=== PATIENT | male | born 1975 | race Caucasian/White ===

== ENCOUNTER → 2020-03-25 08:35 | Outpatient (BNVA) | payer OTHER, SELFPAY | PROVIDERS: Visit Provider Physician Assistant | DX: S39.012A Strain of muscle, fascia and tendon of lower back, initial encounter (principal); X50.0XXA Overexertion from strenuous movement or load, initial encounter; X50.3XXA Overexertion from repetitive movements, initial encounter | CPT/HCPCS: 99202 ==

== ENCOUNTER → 2020-03-29 10:09 | Outpatient (BNVA) | payer OTHER, SELFPAY | PROVIDERS: Visit Provider Physician Assistant Medical | DX: S33.9XXA Sprain of unspecified parts of lumbar spine and pelvis, initial encounter (principal); X58.XXXA Exposure to other specified factors, initial encounter | CPT/HCPCS: 72110; 99214 ==

== ENCOUNTER → 2020-04-05 09:50 | Outpatient (BNVA) | payer OTHER, SELFPAY | PROVIDERS: PCP Internal Medicine; Visit Provider Physician Assistant Medical | DX: M51.16 Intervertebral disc disorders with radiculopathy, lumbar region (principal) | CPT/HCPCS: 99213 ==

== ENCOUNTER 2020-04-11 10:38 | Outpatient (REF) | payer OTHER, SELFPAY ==
--- NOTE | ~2020-04-11 | MR_ITS ---
EXAMINATION: MR LUMBAR SPINE WITHOUT CONTRAST CLINICAL INFORMATION: Lifting/twisting post injury. Radiating down left leg with leg weakness. COMPARISON: Plain films of the lumbar spine 03/29/2020. TECHNIQUE: MRI of the lumbar spine was obtained using routine sequences without contrast. FINDINGS: VERTEBRAL BODIES AND PARASPINAL STRUCTURES: There is anatomic alignment of the vertebral bodies. There is narrowing of and loss of signal from the intervertebral discs at L1-L2 and L5-S1. There is mild loss of signal from the intervertebral disc at L4-L5. There are degenerative endplate contour changes at L1-L2. There is mixed edematous and fatty endplate signal change along the inferior endplate of L1 anteriorly. Vertebral body heights are maintained. No fractures are demonstrated. Overall, marrow signal is homogenous. There is mild fullness of the left adrenal gland, without focal nodule. The visualized pelvic structures are unremarkable. CONUS MEDULLARIS AND CAUDA EQUINA: Normal, terminating at the level of L1. The lower thoracic spinal cord appears normal. The cauda equina nerve roots and filum terminale appear normal. SPINAL LEVELS: L1-L2: There is mild bilateral facet arthropathy. There is a small posterior disc protrusion to the right of midline with an annular fissure without significant mass effect on the thecal sac. The neural foramina are patent bilaterally. There is no central stenosis. L2-L3: There is mild to moderate bilateral facet arthropathy with ligamenta flava hypertrophy and a small right-sided facet joint effusion. Disc contour is normal. There is no central stenosis or foraminal narrowing. L3-L4: There is mild to moderate bilateral facet arthropathy with ligamenta flava hypertrophy and a right facet joint effusion. There is a mild diffuse disc bulge, without foraminal nerve root impingement. There is no central stenosis. L4-L5: There is mild to moderate bilateral facet arthropathy with ligamenta flava hypertrophy and facet joint effusions. There is a diffuse disc bulge with minimal distortion of the ventral thecal sac. There is no central stenosis, and the neural foramina are patent bilaterally. L5-S1: There is mild bilateral facet arthropathy. There is a right paracentral disc protrusion with an annular fissure which mildly distorts the ventral thecal sac. The neural foramina are patent bilaterally. There is no impingement on the traversing S1 nerve roots. There is no central stenosis. MR/MR lumbar spine wo con IMPRESSION: 1. There is a right paracentral disc protrusion at L5-S1 with minimal distortion of the ventral thecal sac. There is no central stenosis or nerve root impingement. 2. Milder spondylitic and facet arthropathic changes are demonstrated at other levels as described above. There is no central stenosis or neural foraminal narrowing.
== END 2020-04-11 10:39 | disposition home or self-care (01) ==
LOC: HO.MRI 10:38
PROVIDERS: Visit Provider Internal Medicine
DX: M79.662 Pain in left lower leg (principal); R53.1 Weakness
CPT/HCPCS: 72148

== ENCOUNTER → 2020-04-16 09:24 | Outpatient (BNVA) | payer OTHER, SELFPAY | PROVIDERS: PCP Internal Medicine; Visit Provider Physician Assistant | DX: M54.17 Radiculopathy, lumbosacral region (principal) | CPT/HCPCS: 99214 ==

== ENCOUNTER → 2020-05-02 09:49 | Outpatient (BNVA) | payer OTHER, SELFPAY | PROVIDERS: PCP Internal Medicine; Visit Provider Physician Assistant Medical | DX: M25.48 Effusion, other site (principal); M50.80 Other cervical disc disorders, unspecified cervical region; M46.1 Sacroiliitis, not elsewhere classified | CPT/HCPCS: 99213 ==

== ENCOUNTER 2020-05-30 11:00 | Outpatient (RCR) | payer OTHER, SELFPAY ==
--- NOTE | 2020-04-04 11:49 | MHC.PT.EP ---
[facility] [place] Office [place] Office [place] Office [address] [phone] F: [phone] F: [phone] F: [phone] F: [phone] Physical Therapy Plan of Care Date of Evaluation: 04/04/20 Date of Surgery: Diagnosis: Lumbar Strain with radiculopathy Assessment: Pt is a 44 y.o.m. 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 Currently he is OOW. PMH is significant for ACL reconstruction 2019. Pt presents to PT today with postural abnormalities, significantly decreased lumbar ROM, strength deficits, and tenderness along (B) lumbar paraspinals, SIJ, and gluteal. Throughout session pt required positional changes for pain relief with standing most comfortable for pt. Pt strength deficits are secondary to pain with likely underlying strength deficits presents. Pt sxs are consistent with acute lumbar strain following workplace incident with possible lumbar derangement. He has a lumbar MRI scheduled 04/11/2020. Pt will benefit from skilled PT 2x/week for 4 weeks to improve hip/lumbar strength, lumbar ROM, pain, and functional mobility to aid in ambulation, ADLs, and return to work. Frequency and Duration: The patient will be seen 2x/week for 4 weeks Short Term Goals: 2 Weeks: 1)Pt will be independent in HEP to maintain gains between sessions 2)Pt pain will decrease 50% to aid in prolonged sitting and sleeping 3)Pt will self identify and correct posture to reduce pain and centralize pain Obstetrician/Gynecologist Goals: 4 Weeks: 1) Pt lumbar ROM will be WFL to aid in bending motions 2) Pt will demonstrate proper lifting mechanics to aid in return to work 3) Pt will tolerate standing activties >1 hour without increase in pain to aid in return to work. Treatment Plan: Modalities to reduce pain, spasms and effusion. Manual therapy to restore motion and function. Therapeutic exercise to improve strength and flexibility. Neuromuscular re-education for posture and balance. Therapeutic activities to return to functional activities of daily living. Electronically signed by: Leona Leong PT Please sign and return to therapist. Thank you for your referral.
--- NOTE | 2020-06-13 12:21 | MHC.PT.DC ---
[facility] [place] Office [place] Office [place] Office [address] [phone] F: [phone] F: [phone] F: [phone] F: [phone] Physical Therapy Discharge Report Diagnosis: Lumbar Strain with radiculopathy Date of Surgery: Date of Evaluation: 04/04/20 Date of Discharge: 06/13/20 Treatments to Date: 13 Cancellations to Date: 8 No Shows to Date: 1 Discharge Status: Improved Function Independent with HEP Visit Non-compliance Discharge Summary: Pt was making good progress in regards to pain and function at time of last visit and demonstrating appropriate lifting 25# box. He did not f/u with final visits and is d/c from PT at this time. Electronically signed by: Leona Leong PT Please sign and return to therapist. Thank you for your referral.
== END 2020-06-13 12:22 | disposition home or self-care (01) ==
LOC: HO.PT 11:00
PROVIDERS: PCP Internal Medicine; Visit Provider Physician Assistant Medical
DX: S39.012A Strain of muscle, fascia and tendon of lower back, initial encounter (principal); M54.16 Radiculopathy, lumbar region
CPT/HCPCS: 97110; 97112; 97140; 97161; 97530

== ENCOUNTER 2021-04-25 07:49 | Outpatient (REF) | payer OTHER, SELFPAY ==
[2021-04-25 08:40] LABS: COVID-19 Test Positive (Negative)
== END 2021-04-25 07:50 | disposition home or self-care (01) ==
LOC: HO.LAB 07:49
PROVIDERS: Visit Provider Internal Medicine
DX: Z20.822 Contact with and (suspected) exposure to COVID-19 (principal)
CPT/HCPCS: 87635; C9803

== ENCOUNTER 2021-05-12 06:43 | Emergency (ER) | payer OTHER, SELFPAY ==
--- NOTE | ~2021-05-12 | US_ITS ---
EXAMINATION: US ABDOMEN LIMITED CLINICAL INFORMATION: Upper abdominal pain. COMPARISON: CT from earlier the same day TECHNIQUE: Real-time imaging of the gallbladder FINDINGS: GALLBLADDER: The gallbladder is normal in size. There is question of mild focal gallbladder wall thickening of the fundus of the gallbladder measuring up to 5 mm. No stone or mass is seen. Gallbladder wall is otherwise normal. There is no pericholecystic fluid. The generation engineering technologist does not report that the patient is tender over the gallbladder. COMMON BILE DUCT: Normal in caliber measuring 0.4 cm in diameter. US/US abdomen limited IMPRESSION: Mild focal gallbladder wall thickening over the fundus of the gallbladder measuring up to 0.5 cm.
--- NOTE | ~2021-05-12 | CT_ITS ---
EXAMINATION: CT ABDOMEN AND PELVIS WITH CONTRAST CLINICAL INFORMATION: Upper abdominal pain COMPARISON: Previous abdominal ultrasound and CT of the abdomen and pelvis March 2014 TECHNIQUE: Multidetector volumetric images were obtained from the superior aspect of the liver through the pubic symphysis following administration 85 mL of Omnipaque 350 intravenous contrast. Sagittal and coronal reformatted images were obtained on the technologist's workstation. Oral contrast: Yes This CT examination was performed using dose optimization techniques as appropriate, variously including the following: *Automated exposure control *Adjustment of mA and/or kV according to patient size (this includes techniques or standardized protocols for targeted exams where dose is matched to indication/reason for exam; i.e. extremities or head) *Use of iterative reconstruction technique DLP: 626 mGy-cm FINDINGS: LUNG BASES: The visualized lung bases are unremarkable. LIVER, GALLBLADDER, AND BILIARY TREE: The liver is normal in size, shape, and attenuation. No focal hepatic lesion or biliary ductal dilatation is present. The gallbladder appears contracted. There is question of mild wall thickening along the gallbladder fundus and tiny amount of adjacent pericholecystic fluid. PANCREAS: Unremarkable. SPLEEN: Unremarkable. ADRENAL GLANDS: Unremarkable. KIDNEYS AND URETERS: The kidneys are normal in size, shape, and attenuation. No hydronephrosis, hydroureter, or calculi seen. No perinephric stranding. BLADDER: Unremarkable. GASTROINTESTINAL TRACT: The small and large bowel are unremarkable. The appendix is unremarkable. Stomach is not optimally distended. ABDOMINAL WALL: Small umbilical hernia containing fat. LYMPH NODES: Normal. VASCULAR: Unremarkable. PELVIC VISCERA: Unremarkable. OSSEOUS STRUCTURES: Unremarkable. CT/CT abdomen pelvis w con IMPRESSION: Contracted gallbladder. Question mild fundal gallbladder wall thickening. This could be better evaluated with ultrasound if clinically indicated. Small umbilical hernia containing fat. Fleischner guidelines were followed.
[2021-05-12 06:50] VITALS: BP 121/86; PULSE 86; RESP 18; TEMP 36.7; O2SAT 100; BMI 29.0
--- NOTE | 2021-05-12 06:53 | ECG_ITS ---
Test Reason : SUB STERNAL PAIN Blood Pressure : / mmHG Vent. Rate : 084 BPM Atrial Rate : 084 BPM P-R Int : 150 ms QRS Dur : 078 ms QT Int : 350 ms P-R-T Axes : 066 036 048 degrees QTc Int : 413 ms Artifact in tracing Normal sinus rhythm Normal ECG When compared with ECG of 02-APR-2018 21:52, No significant change was found Referred By: Generic ED Physician Electronically Signed By:AISSATOU FLORES
[2021-05-12 07:53] LABS: Hematocrit 46.7 % (42.0-52.0); Hemoglobin 15.3 g/dl (14.0-18.0); Mean Corpuscular HGB Conc 32.8 g/dl (31.0-36.0); Mean Corpuscular Hemoglobin 29.9 pg (27.0-33.0); Mean Corpuscular Volume 91.4 fL (80.0-98.0); Mean Platelet Volume 10.2 fL (9.4-12.4); Platelet Count 246 X10*3/uL (160-400); Red Blood Count 5.11 X10*6/uL (4.60-5.80); Red Cell Distribution Width 14.6 % (11.0-16.0)
--- NOTE | 2021-05-12 07:55 | ED_ITS ---
HPI - General Adult General Chief complaint: Abdominal Pain Stated complaint: abd pain, back pain Time Seen by Provider: 05/12/21 07:45 Source: patient Limitations: no limitations History of Present Illness HPI narrative: this is a 46-year-old male who complains of upper abdominal pain that began and has worsened overnight. The patient had noted a few days ago that he had bright red blood in his stool. Yesterday he noted upper abdominal pain, also noted that he seemed to have a knot in his upper abdomen and points to just below his xiphoid process. He has noted continuation of the mid abdominal pain as well as the pain is back on both sides when he takes a deep breath. He denies the pain is worse on 1 side. Denies any fever. Denies any nausea vomiting. Denies any constipation or diarrhea, has not had can not teen you had blood in his stool. He denies any urinary symptoms. He denies fever. Related Data Allergies Allergy/AdvReac Type Severity Reaction Status Date / Time hydrocodone [From VICODIN] Allergy Intermediate HIVES Unverified 11/16/19 17:17 SEASONAL ALLERGIES Allergy Unknown NASAL Uncoded 11/16/19 17:17 STUFFINESS vicodin Allergy Unknown Uncoded 04/12/19 00:00 Review of Systems Review of Systems: Yes all other systems are reviewed and are negative Constitutional: Constitutional: Reports as per HPI and Denies fever(s) Eyes: Eyes: Reports as per HPI and Reports no additional eye complaints ENT: Reports system reviewed and no additional complaints, except as documented, Reports as per HPI, Denies nasal congestion, Denies nasal discharge and Denies sore throat Cardiovascular: Cardiovascular: Reports as per HPI, Denies chest pain and Denies dyspnea Respiratory: Respiratory: Reports as per HPI, Denies cough and Denies dyspnea Gastrointestinal: Gastrointestinal: Reports as per HPI, Reports abdominal pain, Reports hematochezia, Denies diarrhea and Denies vomiting Genitourinary: Genitourinary: Reports as per HPI, Denies hematuria, Denies dysuria and Denies urinary frequency Musculoskeletal: Musculoskeletal: Reports no additional musculoskeletal complaints Integumentary/Breasts: Skin/Breast: Reports as per HPI and Denies rash Neurologic: Reports as per HPI Psychiatric: Psychiatric: Reports no additional psychiatric complaints and Reports as per HPI Endocrine: Endocrine: Reports no additional endocrine complaints and Reports as per HPI Hematologic/Lymphatic: Hematologic/Lymphatic: Reports no additional hematologic/lymphatic complaints, Reports as per HPI and Reports other (No peripheral edema) [facility] Past Medical History Medical History (Updated 05/12/21 @ 14:09 by Andrei Valdivia MD) GERD (gastroesophageal reflux disease) Stomach ulcer Physical Exam ED Vital Signs: Vital Signs - 24 hr 05/12/21 06:50 05/12/21 12:28 Temperature 98.1 F 97.8 F Pulse Rate 86 68 Respiratory Rate 18 18 Blood Pressure 121/86 116/84 Pulse Oximetry 100 97 BMI result Body Mass Index 29.0 Const General: no acute distress Orientation/consciousness: patient oriented x3 HENMT Head: Yes normal to inspection General nose exam: Normal external nose present Mouth: moist mucous membranes Throat: Yes posterior oropharynx normal, Yes tonsils normal and Yes uvula midline Eyes Eyelids: Yes eyelids normal Conjunctivae: conjunctivae normal Pupils: Equal, round and reactive pupils present Neck Neck: Yes supple Resp Effort & Inspection: normal respiratory effort Auscultation: clear to auscultation bilaterally Cardio Rate: regular rate Rhythm: regular rhythm Heart sounds: S1 normal heart sound present, S2 normal heart sound present, no gallops, no murmurs and no rubs GI Inspection: No distended Palpation (GI): Soft to palpation and Tenderness to palpation present (GI) ( Mild epigastric tenderness, slight focal fullness over the xiphoid proces) Auscultation: normal bowel sounds Skin General skin exam: other (Warm and dry) Neuro General: patient oriented x3 and CN's II-XI intact bilaterally Cranial nerves: Yes Equal, round and reactive pupils present Extrem General: Yes no pedal edema Psych Affect: normal affect Attitude: cooperative Medical Decision Making [facility] Narrative Medical decision making narrative: patient later related that he has been having this similar pain about once a month but more recently it has been twice a month and tends to come on after eating. He did have child he has food last night. He is on omeprazole. He has never had his gallbladder evaluated as far as he knows. Patient's CBC chemistry, lipase unremarkable. Liver transaminases borderline elevated but bilirubin and alk-phos normal. CT scan showed question of gallbladder wall thickening in the setting of a contracted gallbladder. Patient feels better after 2 doses of Dilaudid as well as Zofran and Maalox, however given upset and nature of his pain and the fact that comes on after eating, will obtain ultrasound to evaluate the gallbladder better. Ultrasound showed no concerning findings. Patient needs GI follow-up for possible EGD, possible HIDA scan. Patient is on pantoprazole, recommend continuing this Lab Data Lab results reviewed: Yes I reviewed the patient's lab results. Result diagrams: 05/12/21 07:48 05/12/21 07:48 Labs: Lab Results 05/12/21 05/12/21 05/12/21 Range/Units 07:48 07:48 08:03 WBC 8.0 (4.8-10.8) X10*3/uL RBC 5.11 (4.60-5.80) X10*6/uL Hgb 15.3 (14.0-18.0) g/dl Hct 46.7 (42.0-52.0) % MCV 91.4 (80.0-98.0) fL MCH 29.9 (27.0-33.0) pg MCHC 32.8 (31.0-36.0) g/dl RDW 14.6 (11.0-16.0) % Plt Count 246 (160-400) X10*3/uL MPV 10.2 (9.4-12.4) fL Absolute Nucleated RBC 0.000 (0.0-0.012) X10*3/uL Nucleated RBC % (auto) 0.0 (0.0-0.2) /100WBC Sodium 139 (135-145) mmol/L Potassium 5.0 (3.3-5.1) mmol/L Chloride 106 (96-108) mmol/L Carbon Dioxide 24 (22-29) mmol/L Anion Gap 14 (12-20) BUN 15 (9-16) mg/dL Creatinine 0.93 (0.5-1.4) mg/dL Estim Creat Clear Calc 99.5 Estimated GFR > 60 Random Glucose 99 (60-115) mg/dL Calcium 9.8 (8.4-10.2) mg/dL Total Bilirubin 0.2 (0.0-1.0) mg/dL Direct Bilirubin < 0.2 (0.0-0.5) mg/dL AST 62 H (5-37) U/L ALT 44 H (0-40) U/L Alkaline Phosphatase 91 (39-117) U/L Troponin I High Sens < 3.5 (<3.5-35.0) ng/L Total Protein 7.6 (6.5-8.0) g/dL Albumin 4.2 (3.5-5.0) g/dL Lipase 39 (8-78) U/L Urine Color Urine Appearance Urine pH (5.0-8.0) Ur Specific Capulin (1.005-1.025) Urine Protein (NEG-TRACE) MG/DL Urine Glucose (UA) (NEG) MG/DL Urine Ketones (NEG) MG/DL Urine Blood (NEG) Urine Nitrite (NEG) Ur Leukocyte Esterase (NEG) 05/12/21 Range/Units 11:14 WBC (4.8-10.8) X10*3/uL RBC (4.60-5.80) X10*6/uL Hgb (14.0-18.0) g/dl Hct (42.0-52.0) % MCV (80.0-98.0) fL MCH (27.0-33.0) pg MCHC (31.0-36.0) g/dl RDW (11.0-16.0) % Plt Count (160-400) X10*3/uL MPV (9.4-12.4) fL Absolute Nucleated RBC (0.0-0.012) X10*3/uL Nucleated RBC % (auto) (0.0-0.2) /100WBC Sodium (135-145) mmol/L Potassium (3.3-5.1) mmol/L Chloride (96-108) mmol/L Carbon Dioxide (22-29) mmol/L Anion Gap (12-20) BUN (9-16) mg/dL Creatinine (0.5-1.4) mg/dL Estim Creat Clear Calc Estimated GFR Random Glucose (60-115) mg/dL Calcium (8.4-10.2) mg/dL Total Bilirubin (0.0-1.0) mg/dL Direct Bilirubin (0.0-0.5) mg/dL AST (5-37) U/L ALT (0-40) U/L Alkaline Phosphatase (39-117) U/L Troponin I High Sens (<3.5-35.0) ng/L Total Protein (6.5-8.0) g/dL Albumin (3.5-5.0) g/dL Lipase (8-78) U/L Urine Color STRAW Urine Appearance CLEAR Urine pH 6.0 (5.0-8.0) Ur Specific Capulin 1.010 (1.005-1.025) Urine Protein NEG (NEG-TRACE) MG/DL Urine Glucose (UA) NEG (NEG) MG/DL Urine Ketones NEG (NEG) MG/DL Urine Blood NEG (NEG) Urine Nitrite NEG (NEG) Ur Leukocyte Esterase NEG (NEG) Imaging Data CT scan - abdomen: Radiologist's impression: Contracted gallbladder. Question mild fundal gallbladder wall thickening. This could be better evaluated with ultrasound if clinically indicated. Small umbilical hernia containing fat. ultra sound right upper quadrant: Radiologist's impression: IMPRESSION: Mild focal gallbladder wall thickening over the fundus of the gallbladder measuring up to 0.5 cm. ECG Data Attestation: I personally reviewed and interpreted this ECG as follows: Interpretation: sinus rhythm with a rate of 84. Prominent T-wave in lead V3. Slight ST elevation in lead V3 through V6. Artifact versus prominent P waves in leads to 3 in AVF, however not seen in lead 1 or in limb leads Discharge Plan Discharge Clinical Impression: Gastritis Patient Disposition: Home, Self-Care Instructions: Gastritis (ED) Additional Instructions: Continue your omeprazole. Follow-up with Gastroenterology. Return for any new or worsened symptoms. Referrals: Alfonzo Robin [Physician] - 2 days Stand Alone Forms: Work/School Release Interventions: ED Discharge Assessment Last Done: 05/12/21 14:15 Discharge Date/Time: 05/12/21 14:16
[2021-05-12 08:10] LABS: Anion Gap 14 (12-20); Blood Urea Nitrogen 15 mg/dL (9-16); Calcium 9.8 mg/dL (8.4-10.2); Carbon Dioxide 24 mmol/L (22-29); Chloride 106 mmol/L (96-108); Creatinine Clr Calc Pharmacy 99.5; Estimated Glomerular Filt Rate > 60; Glucose Random 99 mg/dL (60-115); Lipase 39 U/L (8-78); Sodium 139 mmol/L (135-145)
[2021-05-12] MEDS: ondansetron HCL 4 MG/2 ML VIAL IVPUSH (08:10)
[2021-05-12] MEDS: Pantoprazole Sodium 40 MG/10 ML VIAL 80 MG IVPUSH (08:10)
[2021-05-12] MEDS: HYDROmorphone HCl 1 MG/ML SYRINGE IVPUSH ×2 (08:10→11:31)
[2021-05-12 08:29] LABS: Troponin-I High Sensitivity < 3.5 ng/L (<3.5-35.0)
[2021-05-12] MEDS: iohexoL 350 MG/ML 100 ML INFUS..BTL 85 ML IV (08:44)
[2021-05-12 10:26] LABS: Alanine Aminotransferase 44 U/L (0-40); Albumin Level 4.2 g/dL (3.5-5.0); Alkaline Phosphatase 91 U/L (39-117); Aspartate Amino Transferase 62 U/L (5-37); Bilirubin Direct < 0.2 mg/dL (0.0-0.5); Bilirubin Total 0.2 mg/dL (0.0-1.0); Total Protein 7.6 g/dL (6.5-8.0)
[2021-05-12] MEDS: Famotidine 20 MG TABLET PO (11:11)
[2021-05-12] MEDS: Magnesium Hydrox/Alum Hydrox 30 ML ORAL.SUSP PO (11:12)
[2021-05-12 11:28] LABS: Appearance Urine CLEAR; Color Urine STRAW; Glucose Urine UA NEG (NEG); Leukocyte Esterase Urine NEG (NEG); Nitrite Urine NEG (NEG); Urine Blood NEG (NEG); Urine Ketones NEG (NEG); Urine Protein NEG (NEG-TRACE)
[2021-05-12 12:28] VITALS: BP 116/84; PULSE 68; RESP 18; TEMP 36.6; O2SAT 97
== END 2021-05-12 14:16 | disposition home or self-care (01) ==
PROVIDERS: Emergency Provider Emergency Medicine
DX: K29.70 Gastritis, unspecified, without bleeding (principal); K21.9 Gastro-esophageal reflux disease without esophagitis
CPT/HCPCS: 36415; 74177; 76705; 80048; 80076; 81003; 83690; 84484; 85027; 93005; 96374; 96375; 96376; 99284; J1170; J2405; Q9967

== ENCOUNTER 2022-01-30 08:17 | Emergency (ER) | payer OTHER, SELFPAY ==
--- NOTE | ~2022-01-30 | CT_ITS ---
EXAMINATION: CT ANGIOGRAM CHEST CLINICAL INFORMATION: Epigastric pain. Chest pain. Aortic dissection COMPARISON: None TECHNIQUE: Multiple axial images were obtained through the chest after the administration of 50 mL of Omnipaque 350 intravenous contrast. Extensive vascular post-processing including two-dimensional and three-dimensional reformatted images were created and reviewed on an independent workstation. This CT examination was performed using dose optimization techniques as appropriate, variously including the following: *Automated exposure control *Adjustment of mA and/or kV according to patient size (this includes techniques or standardized protocols for targeted exams where dose is matched to indication/reason for exam; i.e. extremities or head) *Use of iterative reconstruction technique DLP: 547 mGy-cm FINDINGS: The thoracic and abdominal aorta are normal in caliber. No dissection. No periaortic collection. There is normal contrast enhancement in the branch vessels off the aortic arch, as well as the branch vessels off the upper abdomen to include the SMA and LILIANE. The iliacs are not aneurysmal and demonstrate normal contrast enhancement. There is normal contrast enhancement within the great vessels of the mediastinum. Heart size normal. No coronary artery calcification seen. No pericardial effusion. No significant adenopathy by size criteria. Minimal atelectasis at the bases. No concerning nodules or consolidations. No pneumothorax. Liver, gallbladder, pancreas, spleen, adrenals, kidneys unremarkable. No periaortic collection. No hydronephrosis. Appendix normal. No bowel obstruction or right or left lower quadrant inflammatory change. Bladder not completely evaluated as are the deep pelvic structures were not included on this CT angiogram. Bony structures appear intact. No destructive lesions. CT/CT angio chest aorta IMPRESSION: No evidence for aortic dissection. Study is unremarkable. No aortic aneurysm. Normal contrast enhancement seen within the celiac axis, SMA, renal arteries, and LILIANE.
--- NOTE | ~2022-01-30 | CT_ITS ---
EXAMINATION: CT ANGIOGRAM ABDOMEN AND PELVIS CLINICAL INFORMATION: Abdominal pain COMPARISON: CT angiogram chest aorta same date TECHNIQUE: Multiple axial images were obtained through the abdomen and pelvis following the administration of 100 mL of Omnipaque 350 intravenous contrast. Images were reviewed on a dedicated 3-D workstation. This CT examination was performed using dose optimization techniques as appropriate, variously including the following: *Automated exposure control *Adjustment of mA and/or kV according to patient size (this includes techniques or standardized protocols for targeted exams where dose is matched to indication/reason for exam; i.e. extremities or head) *Use of iterative reconstruction technique DLP: 547 mGy-cm FINDINGS: Normal contrast enhancement in the aorta and branch vessels off the aorta. No dissection or aneurysm. Minimal atelectasis at the lung bases. Liver, gallbladder, pancreas, spleen, adrenals, and kidneys normal. No ascites or adenopathy or bowel obstruction or right or left lower quadrant inflammation. Appendix normal. Bladder and seminal vesicles not fully included on this CT angiogram CT/CT angio abdomen pelvis IMPRESSION: No evidence for aortic dissection or aneurysm.
--- NOTE | ~2022-01-30 | XR_ITS ---
EXAMINATION: XR CHEST CLINICAL INFORMATION: Upper abdominal pain. COMPARISON: None TECHNIQUE: 2 views of the chest were obtained. FINDINGS: No significant abnormality is noted involving the heart, lungs, mediastinum, bony thorax or soft tissues. XR/XR chest 2V IMPRESSION: No acute cardiopulmonary process.
--- NOTE | 2022-01-30 08:20 | ECG_ITS ---
Test Reason : epigastic pain Blood Pressure : / mmHG Vent. Rate : 094 BPM Atrial Rate : 094 BPM P-R Int : 142 ms QRS Dur : 062 ms QT Int : 344 ms P-R-T Axes : 078 043 066 degrees QTc Int : 430 ms Normal sinus rhythm Normal ECG When compared with ECG of 12-MAY-2021 06:52, No significant change was found Referred By: Arminda Richard Electronically Signed By:Andrea Santos
[2022-01-30 08:22] VITALS: BP 181/107; PULSE 92; RESP 18; TEMP 36.6; O2SAT 99; BMI 29.7
--- NOTE | 2022-01-30 08:28 | ED.ABDPAIN ---
HPI - Abdominal Pain General Chief Complaint: Abdominal Pain Stated Complaint: severe abd pain Time Seen by Provider: 01/30/22 08:20 Source: patient Mode of arrival: other (carried) Limitations: no limitations History of Present Illness HPI narrative: 36-year-old male who arrives from work connection. History of present illness is limited as the patient is in quite a significant amount of pain. 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 Patient denies any radiation of pain. Patient reports pain is sharp and stabbing. Denies any nausea, vomiting, diarrhea, chest pain, difficulty breathing. Patient went to work connection to be evaluated. It is unclear what happened but ?syncope episode at work connection. Arrives alert, oriented, diaphoretic in pain Related Data Previous Rx's Medication Instructions Recorded pantoprazole 40 mg tablet,delayed 40 mg PO DAILY #60 tabs 01/30/22 release (Protonix) sucralfate 1 gram tablet (Carafate) 1 g PO TID #90 tabs 01/30/22 Allergies Allergy/AdvReac Type Severity Reaction Status Date / Time hydrocodone [From VICODIN] Allergy Intermediate HIVES Unverified 11/16/19 17:17 SEASONAL ALLERGIES Allergy Unknown NASAL Uncoded 11/16/19 17:17 STUFFINESS vicodin Allergy Unknown Hives Uncoded 01/30/22 10:10 Review of Systems Review of Systems Yes all other systems are reviewed and are negative Constitutional: Reports no additional constitutional complaints, Denies body ache(s), Denies chills, Denies fever(s), Denies headache(s) and Denies weakness Eyes: Reports no additional eye complaints and Denies change in vision Reports system reviewed and no additional complaints, except as documented, Denies dizziness, Denies headache(s), Denies nasal congestion, Denies nasal discharge and Denies neck pain Cardiovascular: Reports no additional cardiovascular complaints, Denies chest pain, Reports syncope, Denies leg edema and Denies dyspnea Respiratory: Reports no additional respiratory complaints, Denies cough and Denies dyspnea Gastrointestinal: Reports no additional gastrointestinal complaints, Reports abdominal pain, Denies diarrhea, Denies nausea and Denies vomiting Genitourinary: Denies urinary incontinence Musculoskeletal: Reports no additional musculoskeletal complaints, Denies back pain, Denies arthralgias, Denies joint swelling, Denies neck pain, Denies numbness and Denies tingling Skin/Breast: Reports system reviewed and no additional complaints, except as docu and Denies rash Reports system reviewed and no additional complaints, except as documented, Denies dizziness, Reports syncope, Denies headache(s), Denies numbness, Denies tingling and Denies weakness PMFSH Past Medical History Attestation statement: The following information was validated with the patient. Source: old records reviewed and nursing notes reviewed Medical History (Updated 01/30/22 @ 13:43 by Arminda Richard NP) GERD (gastroesophageal reflux disease) Stomach ulcer Surgical History (Updated 01/30/22 @ 09:07 by Marlene Martinez PA-C) History of left knee surgery Social History Social History Smoked in Last 30 Days: Yes Advance Directives: Yes Advance Directives Information Provided: Yes Advance Directives on File: No Physical Exam ED Vital Signs: Vital Signs - 24 hr 01/30/22 08:22 01/30/22 11:21 01/30/22 11:54 Temperature 97.8 F 97.8 F Pulse Rate 92 74 Respiratory Rate 18 18 18 Blood Pressure 181/107 H 118/69 Pulse Oximetry 99 99 Oxygen Delivery Method Room Air Room Air 01/30/22 13:49 Temperature 97.9 F Pulse Rate 70 Respiratory Rate 18 Blood Pressure 127/77 Pulse Oximetry 98 Oxygen Delivery Method Room Air BMI result Body Mass Index 29.7 Const Other: in pain General: alert and diaphoretic Orientation/consciousness: patient oriented x3 HENMT Head: Yes normal to inspection Eyes General: appearance normal, both eyes and all related structures Neck Neck: Yes normal visual inspection Chest Chest palpation & inspection: normal inspection of the chest Resp Other: +tachypnea Auscultation: clear to auscultation bilaterally Cardio Rate: regular rate Rhythm: regular rhythm Peripheral pulses: Peripheral pulses 2+ throughout GI Inspection: Yes normal to inspection Palpation (GI): Tenderness to palpation present (GI) in the epigastrum and Guarding due to palpation present (GI) Skin General skin exam: no rashes or lesions noted Neuro General: patient oriented x3 and moves all extremities Cognition (Neuro): normal cognition Extrem General: Yes normal to inspection Course Course Course Narrative: 1000-dissection study is negative. Labs are unremarkable including initial troponin. EKG shows no ischemic changes. Patient is feeling much improved after receiving 1 dose of IV morphine. He is resting comfortably. Plan to monitor the patient and repeat EKG and troponin at 03:00 hours. Patient is agreeable with plan of care. -exception is mild leukocytosis. Likely stress reaction Reevaluation(s) Reevaluation #1: 1130-patient had some unique kacie started to experience pain again. Patient be given morphine, famotidine and GI cocktail. Spoke to . Patient has history of gastric ulcer. Reevaluation #2: 1300-repeat EKG with early repolarization seen in lead 1, V4 through V6. This was reviewed with Cardiology Dr. Santos. Not c/w with ACS. Repeat troponin is negative. Patient feels improved was able to tolerate some crackers and water and pain is well controlled. Patient has had no vomiting. Consider gastric ulcer, gastritis, GERD. Patient to be started on PPI, Carafate before meals, recommendations to follow-up outpatient with GI. Reviewed this with the patient. Reviewed worrisome signs and symptoms of when to return to the emergency room. Comfortable plan for discharge home. Medications Administered Discontinued Medications Generic Name Dose Route Start Last Admin Trade Name Kailee PRN Reason Stop Dose Admin Al Hydroxide/Mg Hydroxide 30 ml 01/30/22 11:27 01/30/22 11:53 Magnesium Hydrox/Alum Hydrox 30 Ml Oral.Susp PO 01/30/22 11:28 30 ml ONCE ONE Administration Famotidine 20 mg 01/30/22 11:26 01/30/22 11:53 Famotidine/Pf 20 Mg/2 Ml Vial IVPUSH 01/30/22 11:27 20 mg ONCE ONE Administration Sodium Chloride 1,000 mls @ 999 mls/hr 01/30/22 08:20 01/30/22 10:34 Ns IV 01/30/22 09:20 Infused .Q1H1M STA Infusion Iohexol 70 ml 01/30/22 08:54 01/30/22 08:55 Iohexol 350 Mg/Ml 100 Ml Infus..Btl IV 01/30/22 08:55 70 ml ONCE ONE Administration Lidocaine HCl 15 ml 01/30/22 11:27 01/30/22 11:53 Lidocaine Hcl Viscous 2 % 15 Ml Solution MUCOUS MEM 01/30/22 11:28 15 ml ONCE ONE Administration Morphine Sulfate 4 mg 01/30/22 08:25 01/30/22 08:31 Morphine Sulfate 4 Mg/Ml Cartridge IVPUSH 01/30/22 08:26 4 mg ONCE ONE Administration Protocol Morphine Sulfate 4 mg 01/30/22 11:26 01/30/22 11:54 Morphine Sulfate 4 Mg/Ml Cartridge IVPUSH 01/30/22 11:27 4 mg ONCE ONE Administration Protocol Ondansetron HCl 4 mg 01/30/22 08:25 01/30/22 08:30 Ondansetron Hcl 4 Mg/2 Ml Vial IVPUSH 01/30/22 08:26 4 mg ONCE ONE Administration MDM - Abdominal Pain MDM Narrative Medical decision making narrative: This is a 46-year-old male who presents with sudden onset of epigastric pain which occurred just prior to arrival while working. 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 Unclear store but patient may have had a syncopal episode at [place]. Patient arrives alert, diaphoretic, guarding the upper abdomen and in pain. Vitals are stable. Patient quite tender over the epigastric with guarding. Will need labs, EKG, CT dissection study -consider abdominal aorta dissection, aortic dissection, perforated gastric ulcer, acs -PE less likely with no hypoxia, no tachypnea, no hypoxia, no clinical findings concerning for DVT, no recent travel or surgery. No history of same or family history of same. Medical Records Attestation: I reviewed the patient's medical records. Lab Data Attestation: I reviewed the patient's lab results. Result diagrams: 01/30/22 09:20 01/30/22 09:20 Labs: Lab Results 01/30/22 01/30/22 01/30/22 Range/Units 08:19 09:20 09:20 WBC 13.6 H (4.8-10.8) X10*3/uL RBC 5.19 (4.60-5.80) X10*6/uL Hgb 15.3 (14.0-18.0) g/dl Hct 45.9 (42.0-52.0) % MCV 88.4 (80.0-98.0) fL MCH 29.5 (27.0-33.0) pg MCHC 33.3 (31.0-36.0) g/dl RDW 14.9 (11.0-16.0) % Plt Count 240 (160-400) X10*3/uL MPV 10.3 (9.4-12.4) fL Immature Gran % (Auto) 0.4 (0.0-0.4) % Neut % (Auto) 77.1 H (45-73) % Lymph % (Auto) 15.8 L (20-40) % [place] % (Auto) 5.0 (2-11) % Eos % (Auto) 1.1 (0-4) % Baso % (Auto) 0.6 (0-2) % Lymph # (Auto) 2.1 (1.2-4.9) X10*3/uL [place] # (Auto) 0.7 (0.1-1.2) X10*3/uL Eos # (Auto) 0.2 (0.0-0.4) X10*3/uL Baso # (Auto) 0.1 (0.0-0.2) X10*3/uL Abs Immat Gran (auto) 0.06 H (0.00-0.03) X10*3/uL Absolute Neuts (auto) 10.5 H (2.0-8.3) x10*3/uL Absolute Nucleated RBC 0.000 (0.0-0.012) X10*3/uL Nucleated RBC % (auto) 0.0 (0.0-0.2) /100WBC Sodium 135 (135-145) mmol/L Potassium 4.6 (3.3-5.1) mmol/L Chloride 103 (96-108) mmol/L Carbon Dioxide 23 (22-29) mmol/L Anion Gap 14 (12-20) BUN 11 (9-16) mg/dL Creatinine 1.00 (0.5-1.4) mg/dL Estim Creat Clear Calc 96.7 Estimated GFR > 60 POC Glucose 139 H (60-115) mg/dL Random Glucose 108 (60-115) mg/dL Lactic Acid (0.5-2.0) mmol/L Calcium 9.1 D (8.4-10.2) mg/dL Magnesium 2.2 (1.6-2.6) mg/dL Total Bilirubin 0.4 (0.0-1.0) mg/dL Direct Bilirubin < 0.2 (0.0-0.5) mg/dL AST 39 H (5-37) U/L ALT 30 (0-40) U/L Alkaline Phosphatase 114 (39-117) U/L Troponin I High Sens (<3.5-35.0) ng/L Total Protein 7.4 (6.5-8.0) g/dL Albumin 4.3 (3.5-5.0) g/dL Lipase 20 (8-78) U/L COVID-19 ([facility]NALISA) (Negative) COVID-19 Clin Com 01/30/22 01/30/22 01/30/22 Range/Units 09:20 09:20 09:29 WBC (4.8-10.8) X10*3/uL RBC (4.60-5.80) X10*6/uL Hgb (14.0-18.0) g/dl Hct (42.0-52.0) % MCV (80.0-98.0) fL MCH (27.0-33.0) pg MCHC (31.0-36.0) g/dl RDW (11.0-16.0) % Plt Count (160-400) X10*3/uL MPV (9.4-12.4) fL Immature Gran % (Auto) (0.0-0.4) % Neut % (Auto) (45-73) % Lymph % (Auto) (20-40) % [place] % (Auto) (2-11) % Eos % (Auto) (0-4) % Baso % (Auto) (0-2) % Lymph # (Auto) (1.2-4.9) X10*3/uL [place] # (Auto) (0.1-1.2) X10*3/uL Eos # (Auto) (0.0-0.4) X10*3/uL Baso # (Auto) (0.0-0.2) X10*3/uL Abs Immat Gran (auto) (0.00-0.03) X10*3/uL Absolute Neuts (auto) (2.0-8.3) x10*3/uL Absolute Nucleated RBC (0.0-0.012) X10*3/uL Nucleated RBC % (auto) (0.0-0.2) /100WBC Sodium (135-145) mmol/L Potassium (3.3-5.1) mmol/L Chloride (96-108) mmol/L Carbon Dioxide (22-29) mmol/L Anion Gap (12-20) BUN (9-16) mg/dL Creatinine (0.5-1.4) mg/dL Estim Creat Clear Calc Estimated GFR POC Glucose (60-115) mg/dL Random Glucose (60-115) mg/dL Lactic Acid 1.6 (0.5-2.0) mmol/L Calcium (8.4-10.2) mg/dL Magnesium (1.6-2.6) mg/dL Total Bilirubin (0.0-1.0) mg/dL Direct Bilirubin (0.0-0.5) mg/dL AST (5-37) U/L ALT (0-40) U/L Alkaline Phosphatase (39-117) U/L Troponin I High Sens < 3.5 (<3.5-35.0) ng/L Total Protein (6.5-8.0) g/dL Albumin (3.5-5.0) g/dL Lipase (8-78) U/L COVID-19 ([facility]NALISA) Negative (Negative) COVID-19 Clin Com See Note 01/30/22 Range/Units 12:55 WBC (4.8-10.8) X10*3/uL RBC (4.60-5.80) X10*6/uL Hgb (14.0-18.0) g/dl Hct (42.0-52.0) % MCV (80.0-98.0) fL MCH (27.0-33.0) pg MCHC (31.0-36.0) g/dl RDW (11.0-16.0) % Plt Count (160-400) X10*3/uL MPV (9.4-12.4) fL Immature Gran % (Auto) (0.0-0.4) % Neut % (Auto) (45-73) % Lymph % (Auto) (20-40) % [place] % (Auto) (2-11) % Eos % (Auto) (0-4) % Baso % (Auto) (0-2) % Lymph # (Auto) (1.2-4.9) X10*3/uL [place] # (Auto) (0.1-1.2) X10*3/uL Eos # (Auto) (0.0-0.4) X10*3/uL Baso # (Auto) (0.0-0.2) X10*3/uL Abs Immat Gran (auto) (0.00-0.03) X10*3/uL Absolute Neuts (auto) (2.0-8.3) x10*3/uL Absolute Nucleated RBC (0.0-0.012) X10*3/uL Nucleated RBC % (auto) (0.0-0.2) /100WBC Sodium (135-145) mmol/L Potassium (3.3-5.1) mmol/L Chloride (96-108) mmol/L Carbon Dioxide (22-29) mmol/L Anion Gap (12-20) BUN (9-16) mg/dL Creatinine (0.5-1.4) mg/dL Estim Creat Clear Calc Estimated GFR POC Glucose (60-115) mg/dL Random Glucose (60-115) mg/dL Lactic Acid (0.5-2.0) mmol/L Calcium (8.4-10.2) mg/dL Magnesium (1.6-2.6) mg/dL Total Bilirubin (0.0-1.0) mg/dL Direct Bilirubin (0.0-0.5) mg/dL AST (5-37) U/L ALT (0-40) U/L Alkaline Phosphatase (39-117) U/L Troponin I High Sens < 3.5 (<3.5-35.0) ng/L Total Protein (6.5-8.0) g/dL Albumin (3.5-5.0) g/dL Lipase (8-78) U/L COVID-19 ([facility]NALISA) (Negative) COVID-19 Clin Com Imaging Data CT scan - chest: Attestation: I personally reviewed and interpreted this imaging study as follows: Radiologist's impression: FINDINGS: The thoracic and abdominal aorta are normal in caliber. No dissection. No periaortic collection. There is normal contrast enhancement in the branch vessels off the aortic arch, as well as the branch vessels off the upper abdomen to include the SMA and LILIANE. The iliacs are not aneurysmal and demonstrate normal contrast enhancement. There is normal contrast enhancement within the great vessels of the mediastinum. Heart size normal. No coronary artery calcification seen. No pericardial effusion. No significant adenopathy by size criteria. Minimal atelectasis at the bases. No concerning nodules or consolidations. No pneumothorax. Liver, gallbladder, pancreas, spleen, adrenals, kidneys unremarkable. No periaortic collection. No hydronephrosis. Appendix normal. No bowel obstruction or right or left lower quadrant inflammatory change. Bladder not completely evaluated as are the deep pelvic structures were not included on this CT angiogram. Bony structures appear intact. No destructive lesions. CT/CT angio chest aorta IMPRESSION: No evidence for aortic dissection. Study is unremarkable. No aortic aneurysm. Normal contrast enhancement seen within the celiac axis, SMA, renal arteries, and LILIANE. CT scan - abdomen: Attestation: I personally reviewed and interpreted this imaging study as follows: Radiologist's impression: FINDINGS: Normal contrast enhancement in the aorta and branch vessels off the aorta. No dissection or aneurysm. Minimal atelectasis at the lung bases.? Liver, gallbladder, pancreas, spleen, adrenals, and kidneys normal. No ascites or adenopathy or bowel obstruction or right or left lower quadrant inflammation. Appendix normal. Bladder and seminal vesicles not fully included on this CT angiogram CT/CT angio abdomen pelvis IMPRESSION: No evidence for aortic dissection or aneurysm. ECG Data Attestation: I personally reviewed and interpreted this ECG as follows: ECG interpretation date: 01/30/22 ECG interpretation time: 08:20 Interpretation: Normal sinus rhythm with a rate of 94, normal [place], normal QRS, normal QT Repeat EKG shows NSR with rate 73, normal [place], normal QRS, normal QT. Early repolorization seeing in lead 1, V4 through V6 Discharge Plan Discharge Clinical Impression: Abdominal pain Patient Disposition: Home, Self-Care Instructions: Abdominal Pain (ED) Additional Instructions: Very bland diet Return for any worsening symptoms Follow-up with GI for an endoscopy Prescriptions: New pantoprazole [Protonix] 40 mg tablet,delayed release (DR/EC) 40 mg PO DAILY Qty: 60 0RF sucralfate [Carafate] 1 gram tablet 1 g PO TID Qty: 90 0RF Referrals: Ivonne Resendez MD [Physician] - 1 week Stand Alone Forms: Work/School Release Interventions: ED Discharge Assessment Last Done: 01/30/22 13:58 Discharge Date/Time: 01/30/22 13:59
[2022-01-30] MEDS: ondansetron HCL 4 MG/2 ML VIAL IVPUSH (08:30)
[2022-01-30] MEDS: Morphine Sulfate 4 MG/ML CARTRIDGE IVPUSH ×2 (08:31→11:54)
[2022-01-30] MEDS: 0.9 % Sodium Chloride 1,000 ML 999 ML IV (08:32)
--- NOTE | 2022-01-30 08:40 | PC.NURSE ---
patient a/ox4 . presented to ED from work connection diaphoretic , hypertensive . 10 out of 10 abdominal pain that radiates up his chest through his back . IV placed in left A.C and patient medicated with zofran and morphine as ordered . patient has been started on normal saline as ordered . Patient to [facility] for images . patient aware of plan of care .
[2022-01-30] MEDS: iohexoL 350 MG/ML 100 ML INFUS..BTL 70 ML IV (08:55)
--- NOTE | 2022-01-30 09:05 | PC.NURSE ---
Patient returns from C.T . patient reports relief from IVP pain medications . labs obtained and sent . EKG obtained . patient on monitor . patient aware of plan of care .
[2022-01-30 09:26] LABS: MANUAL DIFF FLAG NO
[2022-01-30 09:34] LABS: Basophils Absolute Auto 0.1 X10*3/uL (0.0-0.2); Basophils Percent Auto 0.6 % (0-2); Eosinophils Absolute Auto 0.2 X10*3/uL (0.0-0.4); Eosinophils Percent Auto 1.1 % (0-4); Hematocrit 45.9 % (42.0-52.0); Hemoglobin 15.3 g/dl (14.0-18.0); Imm Gran Abs Auto 0.06 X10*3/uL (0.00-0.03); Imm Gran Pct Auto 0.4 % (0.0-0.4); Lymphocytes Absolute Auto 2.1 X10*3/uL (1.2-4.9); Lymphocytes Percent Auto 15.8 % (20-40); Mean Corpuscular HGB Conc 33.3 g/dl (31.0-36.0); Mean Corpuscular Hemoglobin 29.5 pg (27.0-33.0); Mean Corpuscular Volume 88.4 fL (80.0-98.0); Mean Platelet Volume 10.3 fL (9.4-12.4); Monocytes Absolute Auto 0.7 X10*3/uL (0.1-1.2); Neutrophils Absolute Auto 10.5 x10*3/uL (2.0-8.3); Neutrophils Percent Auto 77.1 % (45-73); Platelet Count 240 X10*3/uL (160-400); Red Blood Count 5.19 X10*6/uL (4.60-5.80); Red Cell Distribution Width 14.9 % (11.0-16.0); White Blood Count 13.6 X10*3/uL (4.8-10.8)
[2022-01-30 09:51] LABS: COVID-19 Test Negative (Negative); IDNOW Serial# 16C4AD1C
[2022-01-30 09:52] LABS: Lactic Acid 1.6 mmol/L (0.5-2.0)
[2022-01-30 09:58] LABS: Alanine Aminotransferase 30 U/L (0-40); Albumin Level 4.3 g/dL (3.5-5.0); Alkaline Phosphatase 114 U/L (39-117); Anion Gap 14 (12-20); Aspartate Amino Transferase 39 U/L (5-37); Bilirubin Direct < 0.2 mg/dL (0.0-0.5); Bilirubin Total 0.4 mg/dL (0.0-1.0); Blood Urea Nitrogen 11 mg/dL (9-16); Calcium 9.1 mg/dL (8.4-10.2); Carbon Dioxide 23 mmol/L (22-29); Chloride 103 mmol/L (96-108); Creatinine Clr Calc Pharmacy 96.7; Estimated Glomerular Filt Rate > 60; Glucose Random 108 mg/dL (60-115); Lipase 20 U/L (8-78); Magnesium 2.2 mg/dL (1.6-2.6); Potassium 4.6 mmol/L (3.3-5.1); Sodium 135 mmol/L (135-145); Total Protein 7.4 g/dL (6.5-8.0)
[2022-01-30 10:03] LABS: Troponin-I High Sensitivity < 3.5 ng/L (<3.5-35.0)
[2022-01-30 11:21] VITALS: BP 118/69; PULSE 74; RESP 18; TEMP 36.6; O2SAT 99
[2022-01-30] MEDS: Lidocaine HCl Viscous 2 % 15 ML SOLUTION MUCOUS MEM (11:53)
[2022-01-30] MEDS: Magnesium Hydrox/Alum Hydrox 30 ML ORAL.SUSP PO (11:53)
[2022-01-30] MEDS: Famotidine/PF 20 MG/2 ML VIAL IVPUSH (11:53)
[2022-01-30 11:54] VITALS: RESP 18
--- NOTE | 2022-01-30 12:17 | ECG_ITS ---
Test Reason : ABNORMAL LAB/ SUDDEN ONSET PAIN Blood Pressure : / mmHG Vent. Rate : 073 BPM Atrial Rate : 073 BPM P-R Int : 174 ms QRS Dur : 080 ms QT Int : 372 ms P-R-T Axes : 069 024 036 degrees QTc Int : 409 ms Normal sinus rhythm Normal ECG When compared with ECG of 30-JAN-2022 08:20, No significant change was found Referred By: Arminda Richard Electronically Signed By:Andrea Santos
[2022-01-30 13:29] LABS: Troponin-I High Sensitivity < 3.5 ng/L (<3.5-35.0)
[2022-01-30 13:49] VITALS: BP 127/77; PULSE 70; RESP 18; TEMP 36.6; O2SAT 98
--- NOTE | 2022-01-30 13:54 | PC.NURSE ---
patient a/ox4 . went over discharge instructions as ordered by provider . patient to return if symptoms worsen . patient provided with contact information for follow up with Mimi . no questions at this time.
[2022-01-30 14:19] LABS: Glucose, Whole Blood 139 mg/dL (60-115)
== END 2022-01-30 13:59 | disposition home or self-care (01) ==
PROVIDERS: Nurse Practitioner Family; Emergency Provider Student in an Organized Health Care Education/Training Program
DX: R79.89 Other specified abnormal findings of blood chemistry (principal); R10.13 Epigastric pain; Z20.822 Contact with and (suspected) exposure to COVID-19; Z79.899 Other long term (current) drug therapy
CPT/HCPCS: 36415; 71046; 71275; 74174; 80048; 80076; 82947; 83605; 83690; 83735; 84484; 85025; 87040; 87635; 93005; 99285; J2270; J2405; Q9967

== ENCOUNTER 2023-04-21 09:27 | Outpatient (REF) | payer OTHER, SELFPAY ==
--- NOTE | ~2023-04-21 | XR_ITS ---
EXAMINATION: CERVICAL SPINE 3 VIEWS CLINICAL INFORMATION: Cervicalgia. COMPARISON: None. TECHNIQUE: Frontal, lateral and odontoid views are obtained. FINDINGS: Vertebral body heights are normal. There is mild reversal of the normal lordotic curvature. There is moderate anterior disc space narrowing at C3-C4 and C4-C5. There is mild disc space narrowing at C5-C6. The remaining disc spaces are well-maintained. No acute fracture or spondylolisthesis is seen. There is multi-level cervical spondylosis, most pronounced extending from C3-C4 through C6-C7. The posterior elements are intact. There are calcifications of the ligamentum nuchae. The dens and C7-T1 interface are normal. There is no prevertebral soft tissue swelling. XR/XR cervical spine 3V IMPRESSION: There is multi-level cervical degenerative disc disease, spondylosis and facet arthropathy. Degenerative disc disease is most pronounced at C3-C4 and C4-C5, where it is moderate.
== END 2023-04-21 09:28 | disposition home or self-care (01) ==
LOC: HO.XRAY 09:27
PROVIDERS: PCP Internal Medicine; Visit Provider Physical Medicine & Rehabilitation
DX: M54.2 Cervicalgia (principal)
CPT/HCPCS: 72040

== ENCOUNTER 2023-07-16 09:20 | Outpatient (AMB) | payer OTHER, SELFPAY ==
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
== END 2023-07-16 10:20 | disposition home or self-care (01) ==
PROVIDERS: PCP Internal Medicine; Referring Provider Student in an Organized Health Care Education/Training Program; Visit Provider Physician Assistant
DX: M54.50 Low back pain, unspecified (principal)
CPT/HCPCS: 99204

== ENCOUNTER → 2023-07-16 09:20 | Outpatient (BNVA) | payer OTHER, SELFPAY | PROVIDERS: PCP Internal Medicine; Visit Provider Physician Assistant | DX: M54.50 Low back pain, unspecified (principal) | CPT/HCPCS: 99202 ==

== ENCOUNTER 2023-09-21 10:02 | Outpatient (AMB) | payer OTHER, SELFPAY ==
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
[2023-09-21 10:07] VITALS: BP 110/78; PULSE 87; O2SAT 98; BMI 26.8
== END 2023-09-21 11:15 | disposition home or self-care (01) ==
PROVIDERS: PCP Internal Medicine; Visit Provider Internal Medicine
DX: Z00.00 Encounter for general adult medical examination without abnormal findings (principal); M54.50 Low back pain, unspecified; G89.29 Other chronic pain; R10.13 Epigastric pain; Z87.11 Personal history of peptic ulcer disease; F17.200 Nicotine dependence, unspecified, uncomplicated
CPT/HCPCS: 99386

== ENCOUNTER 2023-09-22 08:42 | Outpatient (REF) | payer OTHER, SELFPAY ==
[2023-09-22 09:03] LABS: MANUAL DIFF FLAG NO
[2023-09-22 09:33] LABS: Basophils Absolute Auto 0.1 X10*3/uL (0.0-0.2); Eosinophils Absolute Auto 0.3 X10*3/uL (0.0-0.4); Eosinophils Percent Auto 3.1 % (0-4); Hematocrit 49.9 % (42.0-52.0); Hemoglobin 16.5 g/dl (14.0-18.0); Imm Gran Abs Auto 0.04 X10*3/uL (0.00-0.03); Imm Gran Pct Auto 0.4 % (0.0-0.4); Lymphocytes Absolute Auto 2.9 X10*3/uL (1.2-4.9); Lymphocytes Percent Auto 32.7 % (20-40); Mean Corpuscular HGB Conc 33.1 g/dl (31.0-36.0); Mean Corpuscular Volume 90.7 fL (80.0-98.0); Mean Platelet Volume 10.3 fL (9.4-12.4); Monocytes Absolute Auto 0.7 X10*3/uL (0.1-1.2); Monocytes Percent Auto 7.6 % (2-11); Neutrophils Absolute Auto 4.9 x10*3/uL (2.0-8.3); Neutrophils Percent Auto 55.2 % (45-73); Platelet Count 261 X10*3/uL (160-400); Red Cell Distribution Width 15.5 % (11.0-16.0)
[2023-09-22 10:02] LABS: Alanine Aminotransferase 25 U/L (0-40); Albumin Level 4.5 g/dL (3.5-5.0); Alkaline Phosphatase 87 U/L (39-117); Anion Gap 13 (12-20); Aspartate Amino Transferase 24 U/L (5-37); Bilirubin Total 0.4 mg/dL (0.0-1.0); Blood Urea Nitrogen 9 mg/dL (9-16); Calcium 9.6 mg/dL (8.4-10.2); Carbon Dioxide 24 mmol/L (22-29); Chloride 108 mmol/L (96-108); Cholesterol 221 mg/dL (<200); Estimated Glomerular Filt Rate > 60; Glucose Fasting 89 mg/dL (60-99); HDL Cholesterol 32 mg/dL (>40); LDL Cholesterol Calculated 151 mg/dL (<100); Potassium 4.8 mmol/L (3.3-5.1); Sodium 140 mmol/L (135-145); Total Protein 7.7 g/dL (6.5-8.0); Triglycerides 193 mg/dL (<150)
[2023-09-22 10:20] LABS: Vitamin D 25-OH Total 32.7 ng/mL (>30)
[2023-09-22 11:58] LABS: Folate 6.6 ng/mL (> or = 4.0); Prostate Specific Antigen Scr 0.36 ng/mL (<0.05-4.0); Vitamin B12 347 pg/mL (200-900)
== END 2023-09-22 08:43 | disposition home or self-care (01) ==
LOC: HO.LAB 08:42
PROVIDERS: PCP Internal Medicine; Visit Provider Internal Medicine
DX: Z00.00 Encounter for general adult medical examination without abnormal findings (principal); E55.9 Vitamin D deficiency, unspecified; E53.8 Deficiency of other specified B group vitamins; E78.00 Pure hypercholesterolemia, unspecified; D64.9 Anemia, unspecified; R30.0 Dysuria
CPT/HCPCS: 36415; 80053; 80061; 82306; 82607; 82746; 84153; 84443; 85025

== ENCOUNTER 2023-09-23 08:49 | Outpatient (REF) | payer OTHER, SELFPAY ==
[2023-09-23 09:24] LABS: Appearance Urine Clear; Color Urine Yellow; Glucose Urine UA Negative (Negative); Leukocyte Esterase Urine Negative (Negative); Nitrite Urine Negative (Negative); PH 5.5 (5.0-9.0); Specific Gravity - Urine 1.015 (1.005-1.025); Urine Blood Negative (Negative); Urine Ketones Negative (Negative); Urine Protein Negative (Neg-Trace)
== END 2023-09-23 08:50 | disposition home or self-care (01) ==
LOC: HO.LNP 08:49
PROVIDERS: Visit Provider Internal Medicine
DX: Z00.00 Encounter for general adult medical examination without abnormal findings (principal); R30.0 Dysuria
CPT/HCPCS: 81003

== ENCOUNTER 2023-11-22 09:50 | Outpatient (AMB) | payer OTHER, SELFPAY ==
--- NOTE | 2023-11-22 09:52 | A.OFFVIS_ITS ---
Vital Signs 11/22/23 09:53 Height 5 ft 6 in Weight 169 lb BMI 27.3 BP 102/68 Blood Pressure Location Lt brachial Position Sitting Pulse 88 Intake Visit Reasons: Hx Peptic Ulcer Intake Note: Patient new consult due hx of Peptic Ulcer. Patient cc: N/V on and off, abdominal pain with bloating, acid reflex with burning sensation, between diarrhea and constipation with bloody stool and weight lost. Pathology Supervisor Required: No Accompanied by: Family/Other Allergies hydrocodone [From VICODIN] Allergy (Intermediate, Verified 11/22/23 09:51) HIVES SEASONAL ALLERGIES Allergy (Unknown, Uncoded 09/21/23 10:52) NASAL STUFFINESS vicodin Allergy (Unknown, Uncoded 09/21/23 10:52) Hives HPI Comments Details: 48 y.o M with PMH of who is here for GI issues. Reports seeing blood after passing BM on wiping. Sometimes has clots in it. Stool itself is brown with blood on top. Has been ongoing for a year. Didnt have health insurance so was not able to get able to medical attention. Has also been noticing change in bowel habits for the past 4 months. Also reports having a sensation o having a knot like sensation in epigastrium assoc with postprandial pain and burning sesnation. Makes himself throw up to feel better. Was given carafate in August but stopped taking it due to headaches + wasnt helping the abd symptoms. Also takes pantoprazole 40 once a day since August which has been helping. Reports being told about a gastric ulcer in his 20s - doesnt recall EGD at that time. Also reports possible unintentional weight loss. Unsure of how many lbs but clothing has become loose over 4 months. Fam hx: father possibly had colon ca [facility] Medical History (Updated 11/22/23 @ 10:35 by Amelia Tompkins MD) Smoker History of gastric ulcer Chronic low back pain GERD (gastroesophageal reflux disease) Surgical History History of left knee surgery Family History Other Family history non-contributory Social History Housing: House Patient Tobacco Use Status: Current everyday Tobacco user Tobacco use type: Cigarette Cigarette Packs Per Day: 1 e-Cigarette/Vaping Use: Never Used service: No Current occupational status: employed Cognitive needs: No Hearing needs: No Vision needs: No Review of Systems Const All systems reviewed & are unremarkable except as noted in HPI and below Physical Exam Vital Signs: Last Vital Signs Pulse 88 11/22/23 09:53 BP 102/68 11/22/23 09:53 BMI result Body Mass Index 27.3 No apparent distress Nonicteric Abdomen soft, tender in epigastrium, nondistended Alert and oriented x3, normal gait Assessment & Plan Assessment & Plan (1) Postprandial epigastric pain: Code(s): R10.13 - Epigastric pain Category: Medical (2) Change in bowel habit: Code(s): R19.4 - Change in bowel habit Category: Medical (3) Bright red rectal bleeding: Code(s): K62.5 - Hemorrhage of anus and rectum Category: Medical (4) Unintentional weight loss: Code(s): R63.4 - Abnormal weight loss Category: Medical Plan Ddx include GERD, PUD, IBD, chronic mesenteric ischemia vandana given longstanding smoking hx. Plan: - Labs as below - CT Abd/pel with contrast - EGD/colo to be booked - PEG prep given and instructions reviewed. - Cont protonix 40 once daily Follow up after procedures Orders: Orders Calprotectin, Fecal Today R19.4 - Change in bowel habit Hepatitis B Surface Antigen Today R19.4 - Change in bowel habit Immunoglobulin A Today R19.4 - Change in bowel habit TSH reflex Free T4 Today R19.4 - Change in bowel habit Complete Blood Count no Diff Today R19.4 - Change in bowel habit Comprehensive Met. Panel Today R19.4 - Change in bowel habit C Reactive Protein Today R19.4 - Change in bowel habit Hepatitis A IgG Today R19.4 - Change in bowel habit Hepatitis B Core Antibody Today R19.4 - Change in bowel habit Hepatitis B Surface Antibody Today R19.4 - Change in bowel habit Hepatitis C Antibody Today R19.4 - Change in bowel habit Transglutaminase IgA Today R19.4 - Change in bowel habit CT abdomen pelvis w IV con Today R10.13 - Epigastric pain, R19.4 - Change in bowel habit Medications: New peg 3350-electrolytes 236-22.74-6.74 -5.86 gram (Golytely) as per split prep instructions, until fecal effluent is clear 240 mL PO Q10M 4,000 mL 0RF colonoscopy Coding Level of Care Code New Pt Level 5 (72916) Diagnoses Postprandial epigastric pain R10.13 Change in bowel habit R19.4 Bright red rectal bleeding K62.5 Unintentional weight loss R63.4
[2023-11-22 09:53] VITALS: BP 102/68; PULSE 88; BMI 27.3
== END 2023-11-22 10:34 | disposition home or self-care (01) ==
PROVIDERS: PCP Internal Medicine; Visit Provider Internal Medicine
DX: R10.13 Epigastric pain (principal); R19.4 Change in bowel habit; K62.5 Hemorrhage of anus and rectum; R63.4 Abnormal weight loss
CPT/HCPCS: 99204

== ENCOUNTER → 2023-11-22 09:50 | Outpatient (BNVA) | payer OTHER, SELFPAY | PROVIDERS: PCP Internal Medicine; Visit Provider Internal Medicine | DX: R10.9 Unspecified abdominal pain (principal); R14.0 Abdominal distension (gaseous); K21.9 Gastro-esophageal reflux disease without esophagitis; R19.7 Diarrhea, unspecified; K59.00 Constipation, unspecified; R63.4 Abnormal weight loss; R10.13 Epigastric pain; K62.5 Hemorrhage of anus and rectum | CPT/HCPCS: 99202 ==

== ENCOUNTER 2023-11-23 08:58 | Outpatient (REF) | payer OTHER, SELFPAY ==
[2023-11-23 10:04] LABS: Hematocrit 47.8 % (42.0-52.0); Hemoglobin 15.9 g/dl (14.0-18.0); Mean Corpuscular HGB Conc 33.3 g/dl (31.0-36.0); Mean Corpuscular Hemoglobin 30.2 pg (27.0-33.0); Mean Corpuscular Volume 90.9 fL (80.0-98.0); Mean Platelet Volume 10.8 fL (9.4-12.4); Platelet Count 248 X10*3/uL (160-400); Red Blood Count 5.26 X10*6/uL (4.60-5.80); Red Cell Distribution Width 14.8 % (11.0-16.0); White Blood Count 10.1 X10*3/uL (4.8-10.8)
[2023-11-23 10:43] LABS: Alanine Aminotransferase 23 U/L (0-40); Albumin Level 4.4 g/dL (3.5-5.0); Alkaline Phosphatase 80 U/L (39-117); Anion Gap 12 (12-20); Aspartate Amino Transferase 17 U/L (5-37); Bilirubin Total 0.2 mg/dL (0.0-1.0); Blood Urea Nitrogen 12 mg/dL (9-16); C Reactive Protein 0.84 mg/dL (< or = 0.50); Calcium 9.1 mg/dL (8.4-10.2); Carbon Dioxide 25 mmol/L (22-29); Chloride 108 mmol/L (96-108); Estimated Glomerular Filt Rate > 60; Glucose Random 98 mg/dL (60-115); Potassium 4.7 mmol/L (3.3-5.1); Sodium 140 mmol/L (135-145); Total Protein 7.6 g/dL (6.5-8.0)
[2023-11-23 10:49] LABS: HBS Num1 214.93 mIU/mL (0-7.99); HBc Num1 0.08 S/CO (0.00-0.79); Hepatitis B Core Antibody Nonreactive (Nonreactive); Hepatitis B Surface Antigen Negative (Negative); ~HepC Num1 0.18 S/CO (0.00-0.79); ~Hepatitis B Surface Antibody REACTIVE (Nonreactive); ~Hepatitis C Antibody Nonreactive (Nonreactive)
[2023-11-23 10:50] LABS: Hepatitis A Antibody IgG REACTIVE (Nonreactive); TSH reflex Free T4 1.43 uIU/mL (0.32-4.0); ~Hepatitis A Antibody IgG 6.93 S/CO (0.00-0.99)
[2023-11-24 12:04] LABS: Immunoglobulin A 356 mg/dL (47-310)
[2023-11-24 22:07] LABS: Transglutaminase IgA <1.0 U/mL
== END 2023-11-23 08:59 | disposition home or self-care (01) ==
LOC: HO.LAB 08:58
PROVIDERS: Visit Provider Internal Medicine
DX: R19.4 Change in bowel habit (principal)
CPT/HCPCS: 36415; 80053; 82784; 84443; 85027; 86140; 86364; 86704; 86706; 86708; 86803; 87340

== ENCOUNTER 2023-11-24 09:52 | Outpatient (REF) | payer OTHER, SELFPAY ==
[2023-12-01 18:59] LABS: Calprotectin, Fecal 12 mcg/g
== END 2023-11-24 09:53 | disposition home or self-care (01) ==
LOC: HO.LNP 09:52
PROVIDERS: Visit Provider Internal Medicine
DX: R19.4 Change in bowel habit (principal)
CPT/HCPCS: 83993

== ENCOUNTER 2024-01-04 09:23 | Outpatient (REF) | payer OTHER, SELFPAY | END 2024-01-04 09:24 | disposition home or self-care (01) | LOC: HO.CT 09:23 | PROVIDERS: PCP Internal Medicine; Visit Provider Internal Medicine | DX: Z13.89 Encounter for screening for other disorder (principal) ==

== ENCOUNTER 2024-01-05 11:21 | Outpatient (REF) | payer OTHER, SELFPAY ==
--- NOTE | ~2024-01-05 | CT_ITS ---
EXAMINATION: CT ABDOMEN AND PELVIS WITH CONTRAST CLINICAL INFORMATION: Changes in bowel habits. COMPARISON: Prior CT of the abdomen and pelvis 05/12/2021 TECHNIQUE: Multidetector volumetric images were obtained from the superior aspect of the liver through the pubic symphysis following administration 85 mL of Omnipaque 350 intravenous contrast. Sagittal and coronal reformatted images were obtained on the technologist's workstation. Oral contrast: Yes This CT examination was performed using dose optimization techniques as appropriate, variously including the following: *Automated exposure control *Adjustment of mA and/or kV according to patient size (this includes techniques or standardized protocols for targeted exams where dose is matched to indication/reason for exam; i.e. extremities or head) *Use of iterative reconstruction technique DLP: 418 mGy-cm FINDINGS: LUNG BASES: The visualized lung bases are unremarkable. LIVER, GALLBLADDER, AND BILIARY TREE: The liver is prominent but there is no focal mass or intrahepatic biliary dilatation. The gallbladder is contracted but does appear to be thick-walled with perhaps a very mild element of pericholecystic fluid. This can be correlated with ultrasound. I do not see any discrete stones. PANCREAS: Unremarkable. SPLEEN: Unremarkable. ADRENAL GLANDS: Unremarkable. KIDNEYS AND URETERS: The kidneys are normal in size, shape, and attenuation. No hydronephrosis, hydroureter, or calculi seen. No perinephric stranding. BLADDER: Unremarkable. GASTROINTESTINAL TRACT: Appendix normal. There is no bowel obstruction or left lower quadrant inflammatory change. Stomach is thick-walled but decompressed. There is a mild amount of stool in the cecum which precludes adequate evaluation for small masses or polyps. There is a 4 mm dense nodule in a segment of ileum, possibly related to stool. Note that the oral contrast seen just in the small bowel which is otherwise unremarkable in appearance. ABDOMINAL WALL: No significant hernia is appreciated. LYMPH NODES: Normal. VASCULAR: There is mildly atherosclerotic but not aneurysmal. PELVIC VISCERA: Unremarkable. OSSEOUS STRUCTURES: There is degenerative change in the upper lumbar spine no fracture or destructive process. CT/CT abdomen pelvis w IV con IMPRESSION: Normal appendix. No bowel obstruction. Dual filled colon. Fleischner guidelines were followed. Electronically signed by: Migue Robles MD 01/05/2024 05:15 PM [facility]
[2024-01-05] MEDS: iohexoL 350 MG/ML 75 ML INFUS..BTL 85 ML IV (12:45)
== END 2024-01-05 11:22 | disposition home or self-care (01) ==
LOC: HO.CT 11:21
PROVIDERS: PCP Internal Medicine; Visit Provider Internal Medicine
DX: R10.13 Epigastric pain (principal); R19.4 Change in bowel habit
CPT/HCPCS: 74177; Q9967

== ENCOUNTER 2024-01-07 09:46 | Outpatient (AMB) | payer OTHER, SELFPAY ==
[2024-01-07 09:57] VITALS: BP 124/68; PULSE 84; O2SAT 99; BMI 28.4
--- NOTE | 2024-01-07 09:57 | MHC.OFFVIS ---
Vital Signs 01/07/24 09:57 Height 5 ft 6 in Weight 176 lb 2.389 oz BMI 28.4 BP 124/68 Blood Pressure Location Lt brachial Position Sitting Pulse 84 Pulse Source Pulse Oximeter Pulse Oximetry (%) 99 Oxygen Delivery Method Room Air Intake Visit Reasons: spondylosis/CM Intake Note: Patient presents today with Spondylosis, he was externally referred by [facility]. Accompanied by: Spouse Allergies hydrocodone [From VICODIN] Allergy (Intermediate, Verified 11/22/23 09:51) HIVES SEASONAL ALLERGIES Allergy (Unknown, Uncoded 09/21/23 10:52) NASAL STUFFINESS vicodin Allergy (Unknown, Uncoded 09/21/23 10:52) Hives Medication List - Last Reconciled 01/07/24 by Tanika Clements MD adalimumab (Humira Pen) 40 mg (0.8 mL) subcut Q2W 30 days barium sulfate 2%(w/v) (Readi-Cat 2) Take 1 bottle 2 hours before the scan, followed by the second bottle one hour before the scan 1 day celecoxib 200 mg (2 x 100 mg) PO BID 90 days pantoprazole (Protonix) 40 mg PO DAILY 90 days peg 3350-electrolytes 236-22.74-6.74 -5.86 gram (Golytely) 240 mL PO Q10M sucralfate (Carafate) 1 g PO TID 30 days topiramate 50 mg PO BID HPI Comments Details: Patient is a 40 y.o. male current every day smoker who is here today for evaluation for low back pain. Patient states that he has had back pain since his teens. First involving his neck and then started to include his lower back. His lower back has been progressively getting worse over the past several years which has precluded him from his activities of daily living. Pain is associated with stiffness in the AM when he wakes up. The stiffness lasts throughout the day. Sometimes the pain is better with movement and worse with rest but other times it is better with rest and worse with movement. The pain wakes him out of sleep. Also has alternating buttock pain. Has also been having diarrhea with blood and mucus. Currently awaiting colonoscopy Feb 28. Had a colonoscopy in the past but that was normal. No known family history of autoimmune disease. Smoke: Cigarette smoking 30+ pack years EtOH: Occasional Other: Marijuana and occasional inhaled cocaine PFSH Medical History (Updated 01/07/24 @ 11:15 by Tanika Clements MD) Adalimumab (Humira) long-term use Smoker History of gastric ulcer Chronic low back pain GERD (gastroesophageal reflux disease) Surgical History History of left knee surgery Family History Other Family history non-contributory Social History Housing: House Patient Tobacco Use Status: Current everyday Tobacco user Tobacco use type: Cigarette Cigarette Packs Per Day: 1 e-Cigarette/Vaping Use: Never Used service: No Current occupational status: employed Cognitive needs: No Hearing needs: No Vision needs: No Review of Systems Const Details: Review of Systems Constitutional: Denies fever, chills, weight loss ENT: Denies vision changes, eye pain or eye redness, dental caries, dry mouth GI: +ve diarrhea with blood and mucus Pulm: Denies SOB, GARCIA, hemoptysis, wheezing Cards: Denies chest pain, palpitations Skin: Denies Raynaud's, rash, nail changes, photosensitivity, SHAREPOINT CONSULTANT: Denies headaches, weakness, paresthesias, recurrent falls MSK: as per HPI All other systems reviewed and are unremarkable except noted above Physical Exam Vital Signs: Last Vital Signs Pulse 84 01/07/24 09:57 BP 124/68 01/07/24 09:57 Pulse Ox 99 01/07/24 09:57 Oxygen Delivery Method Room Air 01/07/24 09:57 BMI result Body Mass Index 28.4 Physical Examination CONSTITUITIONAL Patient alert and cooperative. Well appearing and in no apparent painful distress HEENT Conjunctiva and sclera clear. ?Pupils equal round and reactive to light. ?No lymphadenopathy. ?Normal dentition. No oral or nasal ulcers noted. No evidence of discoid rash to the jhonatan of ears CHEST/RESPIRATORY SYSTEM Normal respiratory effort and able to speak in complete sentences. ?Clear to auscultation bilaterally. ?No crackles, rales, rhonchi, wheezes heard. CARDIAC SYSTEM Regular rate and rhythm. ?S1 and S2 heard no murmurs. ?Radial pulses intact bilaterally MSK Hands: ?Good glove stitcher strength bilaterally - 5/5. ?No deformities noted. ?No synovitis noted to the MCPs, PIPs or DIPs. ?No tenderness to palpation of these joints. Wrists: ?Full range of motion at the wrists without pain. ?No tenderness to palpation or synovitis noted to the wrists. Elbows: Full range of motion without pain. No tenderness, weakness, swelling, increased warmth or erythema. Shoulders: Full range of motion without pain. No tenderness, weakness, swelling, increased warmth or erythema. Hips: Full range of motion without pain. Hip bursa: No tenderness to palpation Knees: ?Full range of motion. ?No tenderness, swelling, increased warmth or erythema.?No effusion or crepitations Ankles: Full range of motion. ?No tenderness, swelling, increased warmth or erythema.? Feet: ?Negative squeeze test. ?No tenderness to palpation or swelling of the MTPs. Tender points:??No tenderness to palpation of the neck, shoulders, chest, elbows, hips, buttocks or knees. Back: Nisha's test 10 -- >13cm (positive), negative occiput to wall test SKIN Skin intact without rashes. Results Reviewed Results Reviewed: Laboratory Tests 09/22/23 11/23/23 09:01 09:13 WBC 9.0 10.1 RBC 5.50 5.26 Hgb 16.5 15.9 Hct 49.9 47.8 Plt Count 261 248 Sodium 140 140 Potassium 4.8 4.7 Chloride 108 108 Carbon Dioxide 24 25 BUN 9 12 Creatinine 0.98 0.92 C-Reactive Protein 0.84 H MRI Pelvis 11/2023 No evidence of sacroiliitis Assessment & Plan Assessment & Plan (1) Seronegative spondylitis: Code(s): M46.90 - Unspecified inflammatory spondylopathy, site unspecified Category: Medical Plan: #Low back pain Patient with low back pain with other features concerning for inflammatory back pain such as alternating buttock pain, pain waking him up at night, pain improves with movement and positive Nisha's test. Though the imaging so far has no shown any evidence of inflammatory disease, will trial humira 40mg every 2 weeks for the next 4 months to see if there is any improvement. 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 Category: Medical Plan: #Long-term Use of TNF Inhibitors: Humira Discussed with the patient the benefits and risks of TNF inhibitors for the management of the rheumatic condition Benefits include reduce pain, maintenance of remission and reduction of flares as well as ?progression of the disease Risks include injection sites/infusion reactions, serious infections (such as bacterial infections, opportunistic infections), malignancy, delaminating syndromes, autoimmune phenomena, CHF exacerbations, palmar plantar psoriasis and cytopenias Recommended rotating injection sites, and holding medication during and for up to 1 week after resolution of a febrile illness or open skin wound Plan I spent 60 minutes reviewing the record and labs, seeing the patient, discussing the treatment plan and documenting in the medical record ? Orders: Orders Erythrocyte Sedimentation Rate Today M46.90 - Unspecified inflammatory spondylopathy, site unspecified Complete Blood Count Auto Diff Today M46.90 - Unspecified inflammatory spondylopathy, site unspecified Comprehensive Met. Panel Today M4.90 - Unspecified inflammatory spondylopathy, site unspecified C Reactive Protein Today M46.90 - Unspecified inflammatory spondylopathy, site unspecified HLA B27 Today M46.90 - Unspecified inflammatory spondylopathy, site unspecified T Spot TB Today M46. 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 Hepatitis B Viral DNA Qn Today M46.90 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
== END 2024-01-07 10:45 | disposition home or self-care (01) ==
PROVIDERS: PCP Internal Medicine; Visit Provider Student in an Organized Health Care Education/Training Program
DX: M46.96 Unspecified inflammatory spondylopathy, lumbar region (principal); Z79.620 Long term (current) use of immunosuppressive biologic
CPT/HCPCS: 99205; G2211

== ENCOUNTER → 2024-01-07 09:46 | Outpatient (BNVA) | payer OTHER, SELFPAY | PROVIDERS: PCP Internal Medicine; Visit Provider Student in an Organized Health Care Education/Training Program | DX: M46.90 Unspecified inflammatory spondylopathy, site unspecified (principal); Z79.620 Long term (current) use of immunosuppressive biologic | CPT/HCPCS: 99202 ==

== ENCOUNTER 2024-01-07 10:49 | Outpatient (REF) | payer OTHER, SELFPAY ==
[2024-01-07 12:03] LABS: Basophils Absolute Auto 0.1 X10*3/uL (0.0-0.2); Eosinophils Absolute Auto 0.2 X10*3/uL (0.0-0.4); Hemoglobin 15.8 g/dl (14.0-18.0); Imm Gran Abs Auto 0.02 X10*3/uL (0.00-0.03); Imm Gran Pct Auto 0.2 % (0.0-0.4); Lymphocytes Percent Auto 37.3 % (20-40); MANUAL DIFF FLAG NO; Mean Corpuscular HGB Conc 33.6 g/dl (31.0-36.0); Mean Corpuscular Hemoglobin 29.8 pg (27.0-33.0); Mean Corpuscular Volume 88.7 fL (80.0-98.0); Mean Platelet Volume 10.4 fL (9.4-12.4); Monocytes Absolute Auto 0.7 X10*3/uL (0.1-1.2); Neutrophils Absolute Auto 4.1 x10*3/uL (2.0-8.3); Neutrophils Percent Auto 50.5 % (45-73); Platelet Count 249 X10*3/uL (160-400); Red Cell Distribution Width 14.5 % (11.0-16.0); White Blood Count 8.1 X10*3/uL (4.8-10.8)
[2024-01-07 12:43] LABS: Erythrocyte Sedimentation Rate 14 MM/HR (0-15)
[2024-01-07 13:02] LABS: Alanine Aminotransferase 28 U/L (0-40); Albumin Level 4.4 g/dL (3.5-5.0); Alkaline Phosphatase 82 U/L (39-117); Anion Gap 14 (12-20); Aspartate Amino Transferase 29 U/L (5-37); Bilirubin Total 0.5 mg/dL (0.0-1.0); Blood Urea Nitrogen 8 mg/dL (9-16); C Reactive Protein 1.04 mg/dL (< or = 0.50); Calcium 9.6 mg/dL (8.4-10.2); Carbon Dioxide 23 mmol/L (22-29); Chloride 106 mmol/L (96-108); Estimated Glomerular Filt Rate > 60; Glucose Random 81 mg/dL (60-115); Potassium 3.9 mmol/L (3.3-5.1); Sodium 139 mmol/L (135-145); Total Protein 7.7 g/dL (6.5-8.0)
[2024-01-13 10:34] LABS: HLA B27 Negative (Negative)
== END 2024-01-07 10:50 | disposition home or self-care (01) ==
LOC: HO.LAB 10:49
PROVIDERS: Visit Provider Student in an Organized Health Care Education/Training Program
DX: M46.90 Unspecified inflammatory spondylopathy, site unspecified (principal)
CPT/HCPCS: 36415; 80053; 85025; 85652; 86140; 86812

== ENCOUNTER 2024-01-20 10:51 | Outpatient (AMB) | payer OTHER, SELFPAY ==
[2024-01-20 10:53] VITALS: BP 126/78; PULSE 92; O2SAT 98; BMI 28.4
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
== END 2024-01-20 11:24 | disposition home or self-care (01) ==
PROVIDERS: PCP Internal Medicine; Visit Provider Internal Medicine
DX: E78.2 Mixed hyperlipidemia (principal); M46.90 Unspecified inflammatory spondylopathy, site unspecified; F33.9 Major depressive disorder, recurrent, unspecified; Z87.11 Personal history of peptic ulcer disease; R10.13 Epigastric pain; F17.200 Nicotine dependence, unspecified, uncomplicated; E66.3 Overweight

== ENCOUNTER → 2024-01-20 10:51 | Outpatient (BNVA) | payer OTHER, SELFPAY | PROVIDERS: PCP Internal Medicine; Visit Provider Internal Medicine | DX: M46.90 Unspecified inflammatory spondylopathy, site unspecified (principal); E78.2 Mixed hyperlipidemia; R10.13 Epigastric pain; F33.9 Major depressive disorder, recurrent, unspecified; E66.3 Overweight; F17.200 Nicotine dependence, unspecified, uncomplicated; Z71.6 Tobacco abuse counseling; Z87.11 Personal history of peptic ulcer disease | CPT/HCPCS: 96127; 99212 ==

== ENCOUNTER 2024-02-29 07:53 | Day surgery (SDC) | payer OTHER, SELFPAY ==
[2024-02-25 11:41] VITALS: BMI 27.3
--- NOTE | 2024-02-29 08:26 | MHC.SHP ---
Pre-Procedural Eval Section A - 24 Hr Update-Section A only Date of Service: 02/29/24 Section B - Complete if H&P > 30 days Chief Complaint: abd pain, rectal bleeding Present Medications: see Short Stay Collaborative assessment Allergies: Allergies Allergy/AdvReac Type Severity Reaction Status Date / Time hydrocodone [From VICODIN] Allergy Intermediate HIVES Verified 02/29/24 08:25 SEASONAL ALLERGIES Allergy Unknown NASAL Uncoded 02/29/24 08:25 STUFFINESS vicodin Allergy Unknown Hives Uncoded 02/29/24 08:25 Review of Systems Review of Systems Comment: Ten point ROS negative Exam Exam Comment: Gen appear: No acute distress HEENT: no icterus Chest: No overt resp distress Abd: soft, nontender, nondistended Psych: Stable affect, answering questions appropriately Neuro: A/Ox3 noted to move all extremities spontaneously Ext: no peripheral edema Plan Diagnosis/Plan: Unchanged I have reviewed the history and physical and performed a pertinent physical examination on my patient. No changes have occurred unless specified. Time Spent With Patient Time: Total time managing care of this patient today ____ minutes.
[2024-02-29 08:40] VITALS: BMI 29.0
[2024-02-29 09:00] VITALS: BP 98/64; PULSE 65; RESP 16; TEMP 36.9; O2SAT 96
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
[2024-02-29] MEDS: Lactated Ringers 1,000 ML 80 ML IVCONT (09:01)
--- NOTE | 2024-02-29 09:34 | P.CONAN_ITS ---
[facility] Active Problems Active Problems: All Active Problems Overweight (BMI 25.0-29.9) (Acute) Mixed hyperlipidemia (Acute) Depression (Acute) Adalimumab (Humira) long-term use (Acute) Seronegative spondylitis (Acute) Unintentional weight loss (Acute) Bright red rectal bleeding (Acute) Change in bowel habit (Acute) Smoker (Acute) Postprandial epigastric pain (Acute) Chronic low back pain (Acute) Annual physical exam (Acute) Esophageal stricture (Acute) History of gastric ulcer (Acute) Lumbar back pain (Acute) Past Medical History Medical History Overweight (BMI 25.0-29.9) Mixed hyperlipidemia Depression Adalimumab (Humira) long-term use Smoker History of gastric ulcer Chronic low back pain GERD (gastroesophageal reflux disease) Functional capacity: independent ambulation Family History Family History Other Family history non-contributory Family history of problems with anesthesia: No Surgical History Surgical History History of left knee surgery History of Problems with Anesthesia: No Social History Social History Housing: House Are you a primary child care associate teacher to a significant other at home: No Do you presently have visiting nurse or other home services: No Patient Tobacco Use Status: Current everyday Tobacco user Tobacco use type: Cigarette Cigarette Packs Per Day: 0.5 Cigarettes Per Day: 10.0 Years Smoked: 35 Smoked in Last 30 Days: Yes e-Cigarette/Vaping Use: Never Used Use of substances other than those prescribed or required for medical reasons: Yes Substance Use Frequency: Daily Have you been hit, kicked, punched, or otherwise hurt by someone within the past year? If so, by whom?: No Are you DNR?: No Advance Directives: No Advance Directives Information Provided: No Advance Directives on File: No Recently lost weight without trying: Yes How much weight loss: 14-23 pounds Eating poorly because of decreased appetite: No Nutrition screen score: 4 Nutrition Risks: No Nutritional Risk service: No Current occupational status: employed Cognitive needs: No Hearing needs: No Vision needs: No Meds Allergies Allergy/AdvReac Type Severity Reaction Status Date / Time hydrocodone [From VICODIN] Allergy Intermediate HIVES Verified 02/29/24 08:25 vicodin Allergy Intermediate Hives Uncoded 02/29/24 08:30 SEASONAL ALLERGIES Allergy Mild NASAL Uncoded 02/29/24 08:30 STUFFINESS Active Medications: Current Medications Lactated Ringer's (Lr) 1,000 mls @ 80 mls/hr IVCONT .[id number] SHAY Last Admin: 02/29/24 09:01 Dose: 80 mls/hr Home Medications ?Medication ?Instructions ?Recorded ?Confirmed ?Last Taken ?Type topiramate 50 mg tablet 50 mg PO BID 09/21/23 02/29/24 Unknown History Exam Height,Weight and Vital Signs: Height 5 ft 6 in Weight 81.511 kg Last Vital Signs Temp 98.5 F 02/29/24 09:00 Pulse 65 02/29/24 09:00 Resp 16 02/29/24 09:00 BP 98/64 02/29/24 09:00 Pulse Ox 96 02/29/24 09:00 O2 Del Method Room Air 02/29/24 09:00 Airway Mallampati Class: III TM Dist: >3cm Neck ROM: Full Heart: RRR Lungs: CTA Assessment and Plan Assessment Anesthesia Assessment: Anesthesia Plan Discussed, Smoking Cess. Discussed and Chart Reviewed Final Anesthetic Review Family History of Problems with Anesthesia: No History of Problems with Anesthesia: No NPO: Yes ASA Class: III Final Preanesthetic Review: Meds/Allgs Chart Reviewed, Consent Obtained/Reviewed and Anes Risks/Benef Reviewed Patient Risk: Intermediate Procedure Risk: Low Anesthetic Plan Anesthetic Plan: MAC: Disposition: Standard PACU
[2024-02-29 10:49] VITALS: BP 86/42; PULSE 70; RESP 16; TEMP 36.6; O2SAT 96
[2024-02-29 11:04] VITALS: BP 116/75; PULSE 66; RESP 16; O2SAT 96
--- NOTE | 2024-02-29 11:04 | P.OPN-COLO_ITS ---
Colonoscopy Operative Note Operative Note Date of Service: 02/29/24 Narrative: Procedure: Upper endoscopy and colonoscopy Indication: Abd pain, rectal bleeding, unintentional weight loss Endoscopist: Amelia Tompkins MD Anesthesia Provider: Eduarda Waters MD Anesthesia type: MAC Instrument: [id number] and [id number] EGD Procedure:?? The procedure, indications, preparation and potential complications were reviewed with the patient, who indicated understanding and gave written informed consent to proceed. The endoscope was introduced through the mouth, and advanced to the 2nd part of the duodenum. The mucosa was carefully examined on slow withdrawal of the endoscope. The patient tolerated the procedure well. There were no immediate complications.? EGD Findings:? * Esophagus:? Normal esophageal mucosa was noted. The Z-line was at 40 cm with a 5 mm SCM island just above it. Cold forceps biopsies were taken to rule out peterson's esophagus. * Stomach:?Erythema in the antrum. Retroflexion was performed in the cardia. Random cold forceps biopsies were taken from the stomach. * Duodenum:? Erythema and edema of the duodenal bulb and second portion of the duodenum. Cold forceps biopsies were taken from the duodenal bulb and 2nd portion of the duodenum to rule out celiac sprue. Colonoscopy Procedure:? The patient was then turned for the colonoscopy. A digital rectal exam was performed which was abnormal for external hemorrhoids. A distal attachment cap was affixed to the tip of the scope and the colonoscope was then inserted through the anus and advanced through the colon and advanced to the cecum at 75 cm and terminal ileum.? Appendiceal orifice and ileocecal valve were identified. Mucosa was carefully examined under high definition white light as the instrument was slowly withdrawn in a retrograde panoramic fashion. Retroflexion was performed in ascending colon and rectum. The procedure was not difficult. The quality of the prep was BBPS: 2+3+3 = adequate Withdrawal time 15 minutes Limitations: No limitations Findings: Mucosa: Normal colon and terminal ileum mucosa. The terminal ileum was intubated to 20 cm. Cold forceps biopsies were taken from the right and left side of the colon to rule out microscopic colitis. Protruding lesions: * 2 sessile polyps of size 2-6 mm were noted in the cecum. Cold snare polypectomy was performed. The polyps were completely removed and retrieved. * 1 sessile polyp of size 8 mm was noted in the ascending colon. Cold snare polypectomy was performed. The polyp was completely removed and retrieved. * 2 sessile polyps of size 8-10 mm were noted in the rectum. Cold snare polypectomy was performed. The polyps were completely removed and retrieved. * Medium internal hemorrhoids without stigmata of recent bleeding. Impression: 1. [place] colored mucosa island above GE junction ? BE (biopsy) 2. Gastritis (biopsy) 3. Duodenitis (biopsy) 4. Normal colon and terminal ileum mucosa (biopsy) 5. Total of 5 polyps removed 6. Internal and external hemorrhoids Recommendations:?? * Follow-up path results * Avoid NSAIDs * Switch to esomeprazole 20 BID * Repeat colonoscopy for CRC screening in 3 years.
--- NOTE | 2024-02-29 11:12 | HO.POSTANES ---
Post Anesthesia Evaluation Post Anesthesia Evaluation Date of Service: 02/29/24 Vital Signs: Vital Signs Temp Pulse Resp BP Pulse Ox O2 Del Method 02/29/24 10:49 97.8 F 70 16 86/42 L 96 Room Air 02/29/24 09:00 98.5 F 65 16 98/64 96 Room Air Anesthesia: Monitored Mental Status: Awake Pain Control: Satisfactory Nausea/Vomiting: None Hydration: Adequate Anesthesia-Related Issues: No Anes. Related Issues
[2024-02-29 11:20] VITALS: BP 127/79; PULSE 68; RESP 16; TEMP 36.8; O2SAT 99
== END 2024-02-29 11:40 | disposition home or self-care (01) ==
PROVIDERS: PCP Internal Medicine; Visit Provider Internal Medicine
PROC: (CPT 45385; principal; 2024-02-29 10:10)
DX: R19.4 Change in bowel habit (principal); K62.5 Hemorrhage of anus and rectum; D12.0 Benign neoplasm of cecum; D12.2 Benign neoplasm of ascending colon; D12.8 Benign neoplasm of rectum; K64.8 Other hemorrhoids; K64.4 Residual hemorrhoidal skin tags; K63.89 Other specified diseases of intestine; R63.4 Abnormal weight loss; Z68.27 Body mass index [BMI] 27.0-27.9, adult; R10.13 Epigastric pain; Z98.890 Other specified postprocedural states; K21.9 Gastro-esophageal reflux disease without esophagitis; K29.50 Unspecified chronic gastritis without bleeding; K29.80 Duodenitis without bleeding; Z87.11 Personal history of peptic ulcer disease; G89.29 Other chronic pain; M54.50 Low back pain, unspecified; Z79.620 Long term (current) use of immunosuppressive biologic; Z79.899 Other long term (current) drug therapy; Z88.5 Allergy status to narcotic agent; F17.210 Nicotine dependence, cigarettes, uncomplicated
CPT/HCPCS: 45385; 45380; 43239; 88305; 88313; 88342; J2003; J2704

== ENCOUNTER → 2024-02-29 07:53 | Outpatient (BNV) | payer OTHER, SELFPAY | PROVIDERS: PCP Internal Medicine; Visit Provider Internal Medicine | DX: R10.9 Unspecified abdominal pain (principal); K62.5 Hemorrhage of anus and rectum; R63.4 Abnormal weight loss; K29.70 Gastritis, unspecified, without bleeding; K29.80 Duodenitis without bleeding; K64.8 Other hemorrhoids; D12.0 Benign neoplasm of cecum; D12.2 Benign neoplasm of ascending colon; D12.8 Benign neoplasm of rectum | CPT/HCPCS: 43239; 45380; 45385 ==

== ENCOUNTER 2024-03-15 10:53 | Outpatient (AMB) | payer OTHER, SELFPAY ==
--- NOTE | 2024-03-15 10:53 | A.OFFVIS_ITS ---
Intake Visit Reasons: s/p egd/colon Intake Note: Kenny presents as a telehealth today to go over results to his EGD and COLO. CC: States that he is still having issues with his lower stomach, diarrhea every once in a while, acid reflux but states that he is taking the nexium every day BID. Allergies hydrocodone [From VICODIN] Allergy (Intermediate, Verified 03/15/24 10:56) HIVES vicodin Allergy (Intermediate, Uncoded 03/15/24 10:56) Hives SEASONAL ALLERGIES Allergy (Mild, Uncoded 03/15/24 10:56) NASAL STUFFINESS HPI Comments Details: 48 y.o M with PMH of who is here for GI issues. Reports seeing blood after passing BM on wiping. Sometimes has clots in it. Stool itself is brown with blood on top. Has been ongoing for a year. Didnt have health insurance so was not able to get able to medical attention. Has also been noticing change in bowel habits for the past 4 months. Also reports having a sensation of having a knot like sensation in epigastrium assoc with postprandial pain and burning sesnation. Makes himself throw up to feel better. Was given carafate in August but stopped taking it due to headaches + wasnt helping the abd symptoms. Also takes pantoprazole 40 once a day since August which has been helping. Reports being told about a gastric ulcer in his 20s - doesnt recall EGD at that time. Also reports possible unintentional weight loss. Unsure of how many lbs but clothing has become loose over 4 months. Fam hx: father possibly had colon ca 02/29/24: EGD/colo 1. [place] colored mucosa island above GE junction ? BE (biopsy) 2. Gastritis (biopsy) 3. Duodenitis (biopsy) 4. Normal colon and terminal ileum mucosa (biopsy) 5. Total of 5 polyps removed 6. Internal and external hemorrhoids Path: A. Duodenum, biopsy: Chronic/non-specific duodenitis. B. Stomach, random, biopsy: Gastric antral and body mucosa with focal minimal chronic inactive gastritis; negative for H. pylori, intestinal metaplasia and dysplasia. C. Esophagus, lower, biopsy: Squamocolumnar mucosa with mild chronic inflammation; negative for intestinal metaplasia and dysplasia. D. Colon, cecal polyp: Tubular adenoma (2 pieces); negative for high-grade dysplasia and carcinoma, and sessile serrated lesion/polyp without dysplasia (2 pieces, appears separate from the adenomatous pieces, endoscopic correlation necessary). E. Colon, ascending, polyp: Consistent with sessile serrated lesion/polyp wit hout dysplasia. F. Colon, right, biopsy: Colonic mucosa with lymphoid aggregates and no specific change. G. Colon, left, biopsy: Colonic mucosa with lymphoid aggregates and no specific change. H. Colon, rectal polyps: Tubular adenomas (2 pieces); negative for high-grade dysplasia and carcinoma 03/15/24: Here as a televisit. Reports limited response to nexium. Still has knot like sensation in the epigastrium. Has also been seen by Rheumatology and started on empiric humira for possible spondylitis. Results of EGD/colo reviewed with the pt. [facility] Medical History Overweight (BMI 25.0-29.9) Mixed hyperlipidemia Depression Adalimumab (Humira) long-term use Smoker Chronic low back pain History of gastric ulcer GERD (gastroesophageal reflux disease) Surgical History History of esophagogastroduodenoscopy (EGD) H/O colonoscopy History of left knee surgery Family History Other Family history non-contributory Social History Housing: House Are you a primary inspector health care facilities to a significant other at home: No Do you presently have visiting nurse or other home services: No Patient Tobacco Use Status: Current everyday Tobacco user Tobacco use type: Cigarette Cigarette Packs Per Day: 0.5 Cigarettes Per Day: 10.0 Years Smoked: 35 e-Cigarette/Vaping Use: Never Used service: No Current occupational status: employed Cognitive needs: No Hearing needs: No Vision needs: No Review of Systems Const All systems reviewed & are unremarkable except as noted in HPI and below Physical Exam Vital Signs: Video visit: No acute distress No icterus noted No facial asymmetry Speaking in full sentences Telehealth Telehealth Telehealth [facility] Location of provider rendering services: practice address Location of patient: address on file Patient Identification confirmed using: Name, : Yes Telehealth method: video Patient verbally consented to treatment: Yes Patient verbally consented to billing insurance company: Yes Patient informed of any privacy concerns related to visit: Yes Minutes spent on Phone/Video with Pt.: 11 Assessment & Plan Assessment & Plan (1) Esophagitis with gastritis: Code(s): K29.70 - Gastritis, unspecified, without bleeding; K20.90 - Esophagitis, unspecified without bleeding Category: Medical (2) Postprandial epigastric pain: Code(s): R10.13 - Epigastric pain Category: Medical (3) Bright red rectal bleeding: Code(s): K62.5 - Hemorrhage of anus and rectum Category: Medical (4) Personal history of colonic polyps: Code(s): Z86.0100 - Personal history of colon polyps, unspecified Category: Medical Plan 1. Gastritis/duodenitis Strongly counseled re smoking cessation to help with healing. Cont nexium BID x 8-12 weeks and then once daily 2. Polyps x 5 total polyps - 3 TA, 2 SSL. Repeat colo to be booked in 3 years Follow up 3 months Coding Level of Care Code Tele Est Pt Level 3 (75651) Diagnoses Esophagitis with gastritis K29.70; K20.90 Postprandial epigastric pain R10.13 Bright red rectal bleeding K62.5 Personal history of colonic polyps Z86.0100
== END 2024-03-15 16:11 | disposition home or self-care (01) ==
LOC: HO.HGI 10:53
PROVIDERS: PCP Internal Medicine; Visit Provider Internal Medicine
DX: K29.70 Gastritis, unspecified, without bleeding (principal); K20.90 Esophagitis, unspecified without bleeding; K62.5 Hemorrhage of anus and rectum; Z86.0100 Personal history of colon polyps, unspecified
CPT/HCPCS: 99213

== ENCOUNTER 2024-05-03 05:59 | Emergency (ER) | payer OTHER, SELFPAY ==
--- NOTE | ~2024-05-03 | XR_ITS ---
CLINICAL HISTORY: pain in left ribcage 2 view chest x-ray Comparison: CR/SR - XR CHEST 2V - 01/30/22 09:39 EST Findings: Patchy retrocardiac consolidation. No effusion. Stable heart size. Right lung appears clear. No acute osseous findings. IMPRESSION: 1. Findings concerning for left lower lobe pneumonia. This document has been electronically signed by: Radha Sagastume MD on 05/03/2024 06:35:51
--- NOTE | ~2024-05-03 | XR_ITS ---
EXAMINATION: XR RIBS, LEFT CLINICAL INFORMATION: pain in ribcage COMPARISON: None available. TECHNIQUE: 3 views of the left ribs were obtained. FINDINGS: Lungs are clear. No consolidation, pneumothorax, or pleural effusion. The cardiomediastinal silhouette and pulmonary vasculature are normal. Osseous structures are unremarkable. Ribs are intact. No fractures are identified. XR/XR ribs LT 2V IMPRESSION: Unremarkable left rib examination. Electronically signed by: Chad Sinclair MD 05/03/2024 07:44 AM CEDRIC
[2024-05-03 06:01] VITALS: BP 155/80; PULSE 92; RESP 28; TEMP 36.6; BMI 28.7
[2024-05-03 08:17] LABS: MANUAL DIFF FLAG NO
[2024-05-03 08:20] LABS: Basophils Absolute Auto 0.1 X10*3/uL (0.0-0.2); Basophils Percent Auto 0.9 % (0-2); Eosinophils Absolute Auto 0.2 X10*3/uL (0.0-0.4); Hematocrit 50.5 % (42.0-52.0); Imm Gran Abs Auto 0.04 X10*3/uL (0.00-0.03); Imm Gran Pct Auto 0.4 % (0.0-0.4); Lymphocytes Absolute Auto 2.6 X10*3/uL (1.2-4.9); Lymphocytes Percent Auto 23.3 % (20-40); Mean Corpuscular HGB Conc 33.7 g/dl (31.0-36.0); Mean Corpuscular Hemoglobin 29.9 pg (27.0-33.0); Mean Corpuscular Volume 88.8 fL (80.0-98.0); Mean Platelet Volume 9.8 fL (9.4-12.4); Monocytes Absolute Auto 0.9 X10*3/uL (0.1-1.2); Monocytes Percent Auto 7.5 % (2-11); Neutrophils Absolute Auto 7.5 x10*3/uL (2.0-8.3); Neutrophils Percent Auto 65.9 % (45-73); Platelet Count 261 X10*3/uL (160-400); Red Blood Count 5.69 X10*6/uL (4.60-5.80); Red Cell Distribution Width 14.7 % (11.0-16.0); White Blood Count 11.3 X10*3/uL (4.8-10.8)
[2024-05-03 08:35] LABS: Alanine Aminotransferase 28 U/L (0-40); Albumin Level 4.5 g/dL (3.5-5.0); Alkaline Phosphatase 95 U/L (39-117); Anion Gap 13 (12-20); Aspartate Amino Transferase 31 U/L (5-37); Bilirubin Total 0.4 mg/dL (0.0-1.0); Blood Urea Nitrogen 13 mg/dL (9-16); Calcium 9.6 mg/dL (8.4-10.2); Carbon Dioxide 24 mmol/L (22-29); Chloride 107 mmol/L (96-108); Creatinine Clr Calc Pharmacy 94.8; Estimated Glomerular Filt Rate > 60; Glucose Random 99 mg/dL (60-115); Potassium 4.9 mmol/L (3.3-5.1); Sodium 139 mmol/L (135-145); Total Protein 8.5 g/dL (6.5-8.0)
[2024-05-03 08:57] LABS: Influenza A PCR NEGATIVE (Negative); Influenza B PCR NEGATIVE (Negative); Resp Syncy Virus RNA Qual PCR NEGATIVE (Negative); SARS COV2 PCR INHOUSE NEGATIVE (Negative)
[2024-05-03 09:09] VITALS: BP 138/93; PULSE 84; RESP 18; TEMP 36.9; O2SAT 97
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
[2024-05-03] MEDS: Ketorolac Tromethamine 30 MG/ML VIAL IM (09:52)
[2024-05-03 09:55] VITALS: BP 138/93; PULSE 84; RESP 18; TEMP 36.9; O2SAT 97
--- OUTSIDE RECORDS SUMMARY | 2024-05-03 10:10 | XMS_ITS | Clinical Summary ---
Author Organization [facility] Address [address] [place] [address] Care Team Providers Care [employer] And Fl[employer] Specialist Name Role Phone Benson Patterson MD Primary Care Provider Allergies Active Allergy Reactions Criticality Noted Date Comments Other 12/03/2016 Seasonal Allergies Medications atorvastatin (LIPITOR) 10 mg tablet Take 1 Tablet by mouth at bedtime. 09/11/2021 Active famotidine (PEPCID) 40 mg tablet Take 1 Tablet by mouth daily. 09/08/2021 Active Active Problems Problem Noted Date Diagnosed Date DDD (degenerative disc disease), cervical 2018 ACL injury tear 12/13/2018 Overview (02/17/2024): Left; follows with [facility] Gastroesophageal reflux disease 09/22/2018 Cervical radicular pain 12/03/2016 Hypercholesteremia 12/03/2016 Anxiety and depression 06/03/2010 Immunizations Name Administration Dates Next Due Influenza Quadravalent, MDCK , 0.5ml, preservative free (Flucelvax) 6mo and older 01/01/2021 Influenza Quadravalent, MDCK , 0.5ml, with preservative (Flucelvax) 6mo and older 12/03/2016 Tdap Tetanus diptheria acell ular pertussis (Boostrix; Adacel) 7yo and older 07/06/2012 Surgical History Surgery Date Site/Laterality Comments OTHER SURGICAL HISTORY PROCEDURE: HISTORICAL UNSPECIFIED SURGERY; COMMENT: urethral stricture TONSILLECTOMY PROCEDURE: HISTORICAL TONSILLECTOMY OTHER SURGICAL HISTORY PROCEDURE: DME ACL ORTHOSIS; COMMENT: LEFT ACL replacement 2019 Medical History Medical History Date Comments Tobacco use 07/06/2012 DX:Tobacco use; COMMENT: Since 13 Anxiety and depression 06/03/2010 DX:Anxiet y and depression Cervical radicular pain 12/03/2016 DX:Cervi nadira radicular pain Moderate drinker of alcohol 12/03/2016 DX:M oderate drinker of alcohol Hypercholesteremia 12/03/2016 DX:Hyperchole steremia ACL injury tear 12/13/2018 DX:ACL injury te ar; COMMENT: Left; follows with [facility] Family History Medical History Relation Name Comments Other: cancer, unknown type Father 70s Asthma Mother 60s Stroke Sister early 40s Heart attack Uncle Relation Name Status Comments Father Mother Sister Uncle Social History Tobacco Use Types Packs/Day Years Used Date Smoking Tobacco: Every Day Cigarettes Smokeless Tobacco: Never Alcohol Use Standard Drinks/Week Comments Yes 24 (1 standard drink = 0.6 oz pu re alcohol) Sex and Gender Information Value Date Recorded Sex Assigned at Not on file Legal Sex Male 2:46 PM EST Gender Identity Not on file Sexual Orientation Not on file Obstetrics History Last Filed Vital Signs Vital Sign Reading Time Taken Comments Blood Pressure 138/84 09/08/2021 1:34 PM EDT Pulse 91 09/08/2021 1:34 PM EDT Temperature - - Respiratory Rate - - Oxygen Saturation - - Inhaled Oxygen Concentration - - Weight 85.7 kg (189 lb) 09/08/2021 1:34 PM EDT Height 167.6 cm (5' 6 ) 09/08/2021 1:34 PM EDT Body Mass Index 30.51 09/08/2021 1:34 PM EDT Plan of Treatment Health Maintenance Due Date Last Done Comments Hepatitis B Vaccines (1 of 3 - 19+ 3-dose series) 05/10/1994 Pneumococcal Vaccine: Pediatrics (0 to 5 Years) and At-Risk Patients (6 to 64 Years) (1 of 2 - PCV) 05/10/1994 Colorectal Cancer Screening: Colonoscopy 01/28/2022 Depression Screening 01/28/2022 Social Influencers of Health Screening 01/28/2022 DTaP,Tdap,and Td Vaccines (2 - Td or Tdap) 07/06/2022 07/06/2012 COVID-19 Vaccine (2 - 2023-2 5 season) 2023 07/17/2020 Influenza Vaccine (#1) 2023 , 12/03/2016 Cholesterol Screening (Lipid Panel) 09/08/2026 09/08/2021 HIV Screening Completed 12/03/2016 Hepatitis C Screening Completed 12/03/2016 HIB Vaccines Aged Out No longer eligi ble based on patient's age to complete this topic HPV Vaccines Aged Out No longer eligi ble based on patient's age to complete this topic Hepatitis A Vaccines Aged Out No long er eligible based on patient's age to complete this topic IPV Vaccines Aged Out No longer eligi ble based on patient's age to complete this topic MMR Vaccines Aged Out No longer eligi ble based on patient's age to complete this topic Meningococcal ACWY Vaccine Aged Out N o longer eligible based on patient's age to complete this topic Meningococcal B Vacine Aged Out No lo nger eligible based on patient's age to complete this topic RSV Immunization Patients Under 20 months Aged Out No longer eligible b ased on patient's age to complete this topic Varicella Vaccines Aged Out No longer eligible based on patient's age to complete this topic Procedures Procedure Name Priority Date/Time Associated Diagnosis Comments LIPID PANEL Routine 09/08/2021 HEPATITIS C SCREENING Routine 12/03/2016 HIV SCREENING Routine 12/03/2016 from Last 3 Months or Most Recently Relevant to Health Maintenance Results * (ABNORMAL) Lipid panel (09/08/2021) Pathologist [facility] LDL/HDL Ratio 8(A) 0 - 4 Triglycerides 337(A) 0 - 150 mg/dL Cholesterol 244(A) 0 - 200 mg/dL HDL 32(A) >=40 mg/dL LDL Cholesterol 145(A) 0 - 100 mg/dL Blood Venous blood specimen / Unknown us Historical Provider LAB BLOOD ORDERABLES Maggie l Result * HIV Screening (12/03/2016) Pathologist [facility] HIV Screening Abstracted us Historical Provider HEALTH MAINTENANCE Final Result * Hepatitis C Screening (12/03/2016) [facility] Hepatitis C Screening Abstracted us Historical Provider HEALTH MAINTENANCE Final Result from Last 3 Months or Most Recently Relevant to Health Maintenance Care Teams [employer] Specialist Relationship Specialty Start Date End Date Benson Patterson MD [address] [place] [id number] PCP - General Internal Medicine 12/17/20
== END 2024-05-03 09:56 | disposition home or self-care (01) ==
PROVIDERS: Emergency Provider Emergency Medicine; PCP Internal Medicine
DX: J18.9 Pneumonia, unspecified organism (principal); R07.81 Pleurodynia; F17.210 Nicotine dependence, cigarettes, uncomplicated
CPT/HCPCS: 0241U; 36415; 71046; 71100; 80053; 85025; 96372; 99283; 99284; J1885

== ENCOUNTER → 2024-05-03 06:07 | Outpatient (BNV) | payer OTHER, SELFPAY | PROVIDERS: PCP Internal Medicine; Visit Provider Radiology Diagnostic Radiology | DX: R07.81 Pleurodynia (principal) | CPT/HCPCS: 71046; 71100 ==

== ENCOUNTER 2024-10-05 15:48 | Outpatient (AMB) | payer OTHER, SELFPAY ==
--- OUTSIDE RECORDS SUMMARY | 2024-10-05 15:51 | XMS_ITS ---
Author Name [facility] Organization Unknown Care Team Organization Name Specialty Phone Email Start Date End Da dionte [facility] 01/06/2022 10/18/2023
--- OUTSIDE RECORDS SUMMARY | 2024-10-05 15:51 | XMS_ITS | Clinical Summary ---
Author Organization [facility] Address [address] [place] [address] Care Team Providers Care Diversional Therapist'S Assistant Name Role Phone Benson Patterson MD Primary Care Provider [phone] Allergies Active Allergy Reactions Criticality Noted Date Comments Other 12/03/2016 Seasonal Allergies Medications atorvastatin (LIPITOR) 10 mg tablet Take 1 Tablet by mouth at bedtime. 09/11/2021 Active famotidine (PEPCID) 40 mg tablet Take 1 Tablet by mouth daily. 09/08/2021 Active Active Problems Problem Noted Date Diagnosed Date DDD (degenerative disc disease), cervical 2018 ACL injury tear 12/13/2018 Overview (02/17/2024): Left; follows with [facility] Gastroesophageal reflux disease 09/22/2018 Cervical radicular [...] injury te ar; COMMENT: Left; follows with [facility] Family History Medical History Relation Name [...] 5 Years) and At-Risk Patients (6 to 49 Years) (1 of 2 - PCV) 05/10/1994 Colorectal Cancer Screening: Colonoscopy 01/28/2022 Social Influencers of Health Screening 01/28/2022 DTaP,Tdap,and Td Vaccines (2 - Td or Tdap) 07/06/2022 07/06/2012 COVID-19 Vaccine (2 - 2023-2 5 season) 2023 07/17/2020 Depression Screening 03/01/2024 Influenza Vaccine (#1) 2024 , 12/03/2016 Cholesterol Screening (Lipid Panel) 09/08/2026 [...] age to complete this topic Meningococcal B Vaccine Aged Out No l onger eligible based on patient's age to complete [...] Maintenance Results * (ABNORMAL) Lipid panel (09/08/2021) [facility] LDL/HDL Ratio 8(A) 0 - 4 Triglycerides 337(A) 0 - 150 mg/dL Cholesterol 244(A) 0 - 200 mg/dL HDL 32(A) >=40 mg/dL LDL Cholesterol 145(A) 0 - 100 mg/dL Blood Venous blood specimen / Unknown us Historical Provider LAB BLOOD ORDERABLES Maggie l Result * HIV Screening (12/03/2016) [facility] HIV Screening Abstracted us Historical Provider HEALTH MAINTENANCE Final Result * Hepatitis C Screening (12/03/2016) [facility] Hepatitis C Screening Abstracted us Historical Provider HEALTH MAINTENANCE Final Result from Last 3 Months or Most Recently Relevant to Health Maintenance Care Teams Diversional Therapist'S Assistant Relationship Specialty Start Date End Date Benson Patterson MD [address] [place] [id number] PCP - General Internal Medicine 12/17/20
--- NOTE | 2024-10-05 15:54 | A.OFFPC_ITS ---
Vital Signs 3 10/05/24 15:55 Height 5 ft 6 in Weight 168 lb 4 oz BMI 27.2 BP 122/80 Blood Pressure Location Lt brachial Position Sitting Respiration 18 Pulse 82 Pulse Source Pulse Oximeter Temp 97.5 F Temp Source Temporal Artery Scan Pulse Oximetry (%) 97 Oxygen Delivery Method Room Air Intake Visit Reasons: f/u neck and shoulder pain Manhole Stripper Required: No Accompanied by: Self / Same As Patient Allergies hydrocodone (From VICODIN) Allergy (Intermediate, Verified 10/05/24 16:22) HIVES vicodin Allergy (Intermediate, Uncoded 10/05/24 16:22) Hives SEASONAL ALLERGIES Allergy (Mild, Uncoded 10/05/24 16:22) NASAL STUFFINESS Medication List - Last Reconciled 10/05/24 by ORTEGA Reyez adalimumab (Humira Pen) 40 mg (0.8 mL) subcut Q2W 30 days azithromycin For 250 mg dose pack: take 500 mg today (day 1), then 250 mg for 4 days (days 2-5) celecoxib 200 mg (2 x 100 mg) PO BID 90 days citalopram 10 mg PO DAILY 30 days esomeprazole magnesium 20 mg PO BID 90 days naproxen 500 mg PO Q12H PRN Tobacco use date assessed: 10/05/24 Dental Screening Dental Screen Date: 10/05/24 Did you have a dental visit in the last 12 months?: Yes Did you have a dental problem in the last 6 months where you did not have access to dental care?: No Was dental information given to patient?: Patient has dentist HPI f/u neck and shoulder pain 2 HPI0 Details The patient is 49 years old presenting with complaints of left shoulder and clavicle pain Reports that two weeks ago; 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 Reports limited ROM in the neck in all directions (tightness and pain reported during passive ROM). He is unable to lift his left shoulder all the way above his head. He describes the pain as tight and uncomfortable. Reports a 6 or 7/10 on the verbal pain scale. Tenderness of the left clavicle area, mild edema in the area; mild derformity at the left clavicle region. No bruising noted. The patient also reports gastrointestinal bleeding, which has worsened over time. He has a history of polyps that were removed during an upper and lower GI examination. The bleeding is described as red and sometimes dark with clots, occurring almost every morning. The patient has experienced weight loss from 180-190 pounds to 168 pounds over several months. However, the patient does reports only eating once a day for the most part. The patient has been diagnosed with gastritis and duodenitis, with recommendations to stop smoking to aid healing. He smokes a pack a day and is currently taking Nexium to manage inflammation. The patient also experiences abdominal pain that resolves after bowel movements. The patient has been taking naproxen on empty stomach because he does not eat regular. He also has external hemorrhoids. [facility] Medical History Overweight (BMI 25.0-29.9) Mixed hyperlipidemia Depression Adalimumab (Humira) long-term use Smoker Chronic low back pain History of gastric ulcer GERD (gastroesophageal reflux disease) Surgical History History of esophagogastroduodenoscopy (EGD) H/O colonoscopy History of left knee surgery Family History Other Family history non-contributory Social History Housing: House Are you a primary home care associate to a significant other at home: No Do you presently have visiting nurse or other home services: No Patient Tobacco Use Status: Current everyday Tobacco user Tobacco use type: Cigarette Cigarette Packs Per Day: 0.5 Cigarettes Per Day: 10.0 Years Smoked: 35 Packs Per Year: 18 Packs per year/per ci.50 e-Cigarette/Vaping Use: Never Used service: No Current occupational status: employed Cognitive needs: No Hearing needs: No Vision needs: No Questionnaire PHQ-9 Over the last 2 weeks, how often have you been bothered by any of the following problems? 1. Little interest or pleasure in doing things: several days 2. Feeling down, depressed, or hopeless: several days 3. Trouble falling or staying asleep, or sleeping too much: more than half the days 4. Feeling tired or having little energy: more than half the days 5. Poor appetite or overeating: several days 6. Feeling bad about yourself - or that you are a failure or have let yourself or your family down: more than half the days 7. Trouble concentrating on things, such as reading the newspaper or watching television: more than half the days 8. Moving or speaking so slowly that other people could have noticed. Or the opposite - being so fidgety or restless that you have been moving around a lot more than usual: more than half the days 9. Thoughts that you would be better off or of hurting yourself in some way: not at all Total score: 13 Source: Developed by Drs. Alfonzo Cartagena, Coral Christian, Usman Ramon and colleagues, with an educational carli from [employer]. Thrive Questionnaire Date Thrive assessed: 10/05/24 I am a: Patient What is your living situation today?: I have a steady place to live Within the past 12 months, did the food you bought not last and you didn't have the money to get more?: I choose not to answer this question Within the past 12 months, did you worry whether your food would run out before you got money to buy more?: I choose not to answer this question Do you have trouble paying for medicines?: I choose not to answer this question Do you have trouble getting transportation to medical appointments?: I choose not to answer this question Do you have trouble paying your heating and electricity bill?: I choose not to answer this question Do you have trouble taking care of your child, family member or friend?: I choose not to answer this question Do you have trouble with day-to-day activities such as bathing, preparing meals, shopping, managing finances, etc.?: I choose not to answer this question Are you currently unemployed and looking for a job?: I choose not to answer this question Are you interested in more education?: I choose not to answer this question Please select the resources that you would like help with: None Currently or been in a relationship where the following occur: I choose not to answer THRIVE Score: 0 AUDIT C Alcohol Use Questionnaire (AUDIT-C) 1. How often do you have a drink containing alcohol?: 2-4 times a month 2. How many drinks containing alcohol do you have on a typical day when you are drinking?: 5 or 6 3. How often do you have six or more drinks on one occasion?: Weekly Total Score: 7 LIZA-7 AMB Questionnaire LIZA-7 Date LIZA - 7 assessed: 10/05/24 Feeling nervous, anxious, or on edge: 2 = More than half the days Not being able to stop or control worryin = More than half the days Worrying too much about different things: 2 = More than half the days Trouble relaxin = More than half the days Being so restless that it is hard to sit still: 2 = More than half the days Becoming easily annoyed or irritable: 2 = More than half the days Feeling afraid as if something awful might happen: 2 = More than half the days Total LIZA-7 score (0-4 normal; 5-9 mild; 10-14 moderate; 15-21 severe): 14 Source: Developed by Drs. Alfonzo Cartagena, Coral Christian, Usman Ramon and colleagues, with an educational carli from [employer]. Review of Systems Const Denies headache(s) Eyes Denies loss of vision ENT Denies headache(s), Reports neck pain and Denies sore throat Card Denies chest pain, Denies leg edema and Denies lightheadedness Resp Denies cough, Denies hemoptysis and Denies wheezing GI Reports abdominal pain (on and off), Denies melena, Reports hematochezia (intermittently), Denies constipation, Reports heartburn (depending on what he eats), Denies diarrhea and Denies vomiting Denies dysuria, Denies urinary frequency and Denies urinary urgency Musc Reports arthralgias (left shoulder), Denies joint swelling, Reports limited range of motion (left shoulder), Reports neck pain and Reports other (left clavicle area edema) Neuro Reports no additional complaints, Denies headache(s) and Denies loss of vision Aller/Immun Denies wheezing Physical exam (Primary Care) Vital Signs: Last Vital Signs Temp 97.5 F 10/05/24 15:55 Pulse 82 10/05/24 15:55 Resp 18 10/05/24 15:55 BP 122/80 10/05/24 15:55 Pulse Ox 97 10/05/24 15:55 Oxygen Delivery Method Room Air 10/05/24 15:55 BMI result Body Mass Index 27.2 Tobacco/Smoking Status: Tobacco use Status Tobacco use date assessed 10/05/24 10/05/24 16:02 Patient Tobacco Use Status Current everyday Tobacco 10/05/24 16:02 Tobacco use type Cigarette 10/05/24 16:02 e-Cigarette/Vaping Use Never Used 10/05/24 16:02 PHQ-9: PHQ-9 Score PHQ-9: Total score 13 10/05/24 16:28 Thrive Assessment: Date of Thrive Assessment Date Thrive assessed 10/05/24 10/05/24 16:02 Currently or been in a relationship where the following occur: I choose not to answer Const General: cooperative, healthy appearing, comfortable and no acute distress Orientation/consciousness: patient oriented x3 HENMT Head: Yes normocephalic Ears: hearing grossly normal bilaterally General nose exam: Normal external nose present Eyes General: appearance normal, both eyes and all related structures Conjunctivae: conjunctivae normal Neck Neck: Yes full ROM, Yes no lymphadenopathy and No anterior neck swelling Chest Chest/axillae images: 2 1. Mild edema, tender, mildly deformed, no discoloration Resp Effort & Inspection: normal respiratory effort Auscultation: clear to auscultation bilaterally, no crackles, no rales, no rhonchi and no wheezes Cardio Rate: regular rate Rhythm: regular rhythm Heart sounds: S2 normal heart sound present and no murmurs GI Palpation (GI): Soft to palpation and nontender Auscultation: normal bowel sounds Back/Spine/Pelvis Cervical Spine: pain with cervical ROM Skin General skin exam: no rashes or lesions noted Neuro General: patient oriented x3 Gait exam (Neuro): Normal gait present Extrem General: Yes normal to inspection, Yes full ROM and No edema Left upper extremity: shoulder/upper arm Details: abnormal to inspection Details: clavicle deformity, tenderness and swelling Psych Affect: normal affect Attitude: cooperative Insight: Good insight present (Psych) Judgement: Good judgement present (Psych) Coding Level of Care Code Est Pt Level 3 (05471) Diagnoses Acute pain of left shoulder M25.512 Chronicity: acute Pain of left clavicle M89.8X1 Smoker F17.200 Bright red rectal bleeding K62.5 Postprandial epigastric pain R10.13 Neck pain M54.2 Time Spent (min) 35 Assessment & Plan Assessment & Plan (1) Left shoulder pain: Code(s): M25.512 - Pain in left shoulder Category: Medical Qualifiers: Chronicity: acute Qualified Code(s): M25.512 - Pain in left shoulder (2) Pain of left clavicle: Code(s): M89.8X1 - Other specified disorders of bone, shoulder Category: Medical (3) Smoker: Code(s): F17.200 - Nicotine dependence, unspecified, uncomplicated Category: Social Hx (4) Bright red rectal bleeding: Code(s): K62.5 - Hemorrhage of anus and rectum Category: Medical (5) Postprandial epigastric pain: Code(s): R10.13 - Epigastric pain Category: Medical (6) Neck pain: Code(s): M54.2 - Cervicalgia Category: Medical Plan The plan includes obtaining a clavicle and shoulder x-ray to evaluate the source of the neck and shoulder pain, as there is a suspicion of an underlying issue affecting the neck due to lifting activities. Gabapentin has been prescribed to manage nerve pain, with instructions to start at a low dose and take it at night to minimize drowsiness. The patient is advised to stop taking NSAIDs like naproxen due to their potential to exacerbate gastrointestinal bleeding. For gastrointestinal issues, the patient is advised to continue taking Nexium to manage gastritis and duodenitis and to cease smoking to aid in healing. The patient is also advised to monitor for any changes in symptoms and to follow up with a program evaluation consultant for further evaluation of gastrointestinal bleeding. Patient was informed and verbally consented to the use of an ambient scribe for clinic note documentation during this visit. Orders: Orders 2 XR shoulder LT min 2V 10/05/24 M25.512 - Pain in left shoulder XR clavicle LT 10/05/24 M89.8X1 - Other specified disorders of bone, shoulder Medications: New 2 gabapentin 100 mg PO TID 90 caps 1RF
[2024-10-05 15:55] VITALS: BP 122/80; PULSE 82; RESP 18; TEMP 36.4; O2SAT 97; BMI 27.2
== END 2024-10-05 17:19 | disposition home or self-care (01) ==
LOC: HO.HMCH 15:49
PROVIDERS: PCP Internal Medicine
DX: M25.512 Pain in left shoulder (principal); M89.8X1 Other specified disorders of bone, shoulder; F17.200 Nicotine dependence, unspecified, uncomplicated; K62.5 Hemorrhage of anus and rectum; R10.13 Epigastric pain; M54.2 Cervicalgia

== ENCOUNTER → 2024-10-05 15:48 | Outpatient (BNVA) | payer OTHER, SELFPAY | PROVIDERS: PCP Internal Medicine | DX: M54.2 Cervicalgia (principal); M25.512 Pain in left shoulder; M89.8X1 Other specified disorders of bone, shoulder; K62.5 Hemorrhage of anus and rectum; R10.13 Epigastric pain; F17.210 Nicotine dependence, cigarettes, uncomplicated | CPT/HCPCS: 99212 ==

== ENCOUNTER 2024-10-09 14:46 | Outpatient (REF) | payer OTHER, SELFPAY ==
--- NOTE | ~2024-10-09 | XR_ITS ---
EXAMINATION: XR SHOULDER, LEFT CLINICAL INFORMATION: M25.512 - Pain in left shoulder COMPARISON: None available. TECHNIQUE: AP external rotation, Grashey, scapular Y, and axillary views of the left shoulder. FINDINGS: No acute cortical disruption or malalignment. Mild degenerative changes the acromioclavicular joint. 5 mm calcification in the soft tissues of the supraspinatus tendon insertion. No lytic or blastic lesions. XR/XR shoulder LT min 2V IMPRESSION: Probable calcific tendinosis/tendinopathy, supraspinatus. Electronically signed by: John Marcial MD 10/09/2024 03:11 PM EDT
--- NOTE | ~2024-10-09 | XR_ITS ---
EXAMINATION: XR CLAVICLE, LEFT CLINICAL INFORMATION: M89.8X1 - Other specified disorders of bone, shoulder COMPARISON: None available. TECHNIQUE: AP views of the left clavicle. FINDINGS: No acute cortical disruption. No lytic or blastic lesions. XR/XR clavicle LT IMPRESSION: No acute fracture. Electronically signed by: John Marcial MD 10/09/2024 03:11 PM EDT
--- OUTSIDE RECORDS SUMMARY | 2024-10-09 15:11 | XMS_ITS | Clinical Summary ---
Author Organization [facility] Address [address] [place] [address] Care Team Providers Care Supervisor Dog License Officer Name Role Phone Benson Patterson MD Primary Care Provider [phone] Allergies Active Allergy Reactions Criticality Noted Date Comments Other 12/03/2016 Seasonal Allergies Medications atorvastatin (LIPITOR) 10 mg tablet Take 1 Tablet by mouth at bedtime. 09/11/2021 Active famotidine (PEPCID) 40 mg tablet Take 1 Tablet by mouth daily. 09/08/2021 Active Active Problems Problem Noted Date Diagnosed Date DDD (degenerative disc disease), cervical 2018 ACL injury tear 12/13/2018 Overview (02/17/2024): Left; follows with [facility] Gastroesophageal reflux disease 09/22/2018 Cervical radicular [...] injury te ar; COMMENT: Left; follows with [facility] Family History Medical History Relation Name [...] Maintenance Results * (ABNORMAL) Lipid panel (09/08/2021) [facility] LDL/HDL Ratio 8(A) 0 - 4 Triglycerides 337(A) 0 - 150 mg/dL Cholesterol 244(A) 0 - 200 mg/dL HDL 32(A) >=40 mg/dL LDL Cholesterol 145(A) 0 - 100 mg/dL Blood Venous blood specimen / Unknown us Historical Provider LAB BLOOD ORDERABLES Maggie l Result * HIV Screening (12/03/2016) [facility] HIV Screening Abstracted us Historical Provider HEALTH MAINTENANCE Final Result * Hepatitis C Screening (12/03/2016) [facility] Hepatitis C Screening Abstracted us Historical Provider HEALTH MAINTENANCE Final Result from Last 3 Months or Most Recently Relevant to Health Maintenance Care Teams Supervisor Dog License Officer Relationship Specialty Start Date End Date Benson Patterson MD [address] [place] [id number] PCP - General Internal Medicine 12/17/20
== END 2024-10-09 14:47 | disposition home or self-care (01) ==
LOC: HO.XRAY 14:46
PROVIDERS: PCP Internal Medicine
DX: M25.512 Pain in left shoulder (principal); M89.8X1 Other specified disorders of bone, shoulder
CPT/HCPCS: 73000; 73030

== ENCOUNTER → 2024-10-09 14:51 | Outpatient (BNV) | payer OTHER, SELFPAY | PROVIDERS: PCP Internal Medicine; Visit Provider Radiology Diagnostic Radiology | DX: M75.32 Calcific tendinitis of left shoulder (principal); M25.512 Pain in left shoulder | CPT/HCPCS: 73000; 73030 ==

== ENCOUNTER 2024-12-05 15:19 | Outpatient (AMB) | payer OTHER, SELFPAY ==
--- NOTE | 2024-12-05 15:30 | MHC.PC.OV ---
Vital Signs 12/05/24 15:31 Height 5 ft 6 in Weight 180 lb 6 oz BMI 29.1 BP 108/70 Blood Pressure Location Rt brachial Position Sitting Respiration 18 Pulse 95 Pulse Source Pulse Oximeter Temp 97.8 F Temp Source Temporal Artery Scan Pulse Oximetry (%) 96 Oxygen Delivery Method Room Air Intake Visit Reasons: A follow up on neck and other options Art Therapy Certified Supervisor Required: No Accompanied by: Self / Same As Patient Allergies hydrocodone (From VICODIN) Allergy (Intermediate, Verified 12/05/24 15:49) HIVES vicodin Allergy (Intermediate, Uncoded 12/05/24 15:49) Hives SEASONAL ALLERGIES Allergy (Mild, Uncoded 12/05/24 15:49) NASAL STUFFINESS Medication List - Last Reconciled 12/05/24 by ORTEGA Reyez azithromycin For 250 mg dose pack: take 500 mg today (day 1), then 250 mg for 4 days (days 2-5) citalopram 10 mg PO DAILY 30 days cyclobenzaprine 10 mg PO Q8H PRN esomeprazole magnesium 20 mg PO BID 90 days gabapentin 100 mg PO TID meloxicam 15 mg PO DAILY Tobacco use date assessed: 12/05/24 Dental Screening Dental Screen Date: 12/05/24 Did you have a dental visit in the last 12 months?: Yes Did you have a dental problem in the last 6 months where you did not have access to dental care?: No Was dental information given to patient?: Patient has dentist HPI A follow up on neck and other options HPI Details The patient is a 49-year-old male presenting with chronic pain to left shoulder and clavicle area. He reports persistent shooting pains radiating from the neck to the armpit and back of the arm, with a history of osteoarthritis confirmed by imaging showing joint calcification and deterioration. Left shoulder x-ray showed calcific tendinosis/tendinopathy, supraspinatus. Consistent with frozen shoulder. Reports that he has been evaluated by [facility] in the past. Physical therapy was previously attempted but discontinued due to lack of improvement, and injections have not provided lasting relief. Weather changes exacerbate symptoms, causing severe discomfort and sleep disturbances. The patient experiences significant fatigue after minimal activity and has a history of stomach ulcers affecting his medication regimen, such as NSAIDs. [facility] Medical History Overweight (BMI 25.0-29.9) Mixed hyperlipidemia Depression Adalimumab (Humira) long-term use Smoker Chronic low back pain History of gastric ulcer GERD (gastroesophageal reflux disease) Surgical History History of esophagogastroduodenoscopy (EGD) H/O colonoscopy History of left knee surgery Family History Other Family history non-contributory Social History Housing: House Are you a primary lawn care specialist to a significant other at home: No Do you presently have visiting nurse or other home services: No Patient Tobacco Use Status: Current everyday Tobacco user Tobacco use type: Cigarette Cigarette Packs Per Day: 0.5 Cigarettes Per Day: 10.0 Years Smoked: 35 e-Cigarette/Vaping Use: Never Used service: No Current occupational status: employed Cognitive needs: No Hearing needs: No Vision needs: No Questionnaire Thrive Questionnaire Date Thrive assessed: 10/05/24 I am a: Patient What is your living situation today?: I have a steady place to live Within the past 12 months, did the food you bought not last and you didn't have the money to get more?: I choose not to answer this question Within the past 12 months, did you worry whether your food would run out before you got money to buy more?: I choose not to answer this question Do you have trouble paying for medicines?: I choose not to answer this question Do you have trouble getting transportation to medical appointments?: I choose not to answer this question Do you have trouble paying your heating and electricity bill?: I choose not to answer this question Do you have trouble taking care of your child, family member or friend?: I choose not to answer this question Do you have trouble with day-to-day activities such as bathing, preparing meals, shopping, managing finances, etc.?: I choose not to answer this question Are you currently unemployed and looking for a job?: I choose not to answer this question Are you interested in more education?: I choose not to answer this question Please select the resources that you would like help with: None Currently or been in a relationship where the following occur: I choose not to answer THRIVE Score: 0 LIZA-7 AMB Questionnaire LIZA-7 Date LIZA - 7 assessed: 10/05/24 Source: Developed by Drs. Alfonzo Cartagena, Coral Christian, Usman Ramon and colleagues, with an educational carli from [employer]. Review of Systems Const Reports lethargy Eyes Denies loss of vision ENT Reports neck pain Card Denies chest pain, Denies rapid heart rate, Denies leg edema and Denies dyspnea Resp Denies dyspnea Musc Reports arthralgias (left shoulder), Reports neck pain and Reports radiating pain into limb (posterior left arm) Neuro Denies loss of vision Physical exam (Primary Care) Vital Signs: Last Vital Signs Temp 97.8 F 12/05/24 15:31 Pulse 95 12/05/24 15:31 Resp 18 12/05/24 15:31 BP 108/70 12/05/24 15:31 Pulse Ox 96 12/05/24 15:31 Oxygen Delivery Method Room Air 12/05/24 15:31 BMI result Body Mass Index 29.1 Tobacco/Smoking Status: Tobacco use Status Tobacco use date assessed 12/05/24 12/05/24 15:37 Patient Tobacco Use Status Current everyday Tobacco 12/05/24 15:37 Tobacco use type Cigarette 12/05/24 15:37 e-Cigarette/Vaping Use Never Used 12/05/24 15:37 Thrive Assessment: Date of Thrive Assessment Date Thrive assessed 10/05/24 12/05/24 15:37 Currently or been in a relationship where the following occur: I choose not to answer Const General: alert and awake Orientation/consciousness: oriented to person, oriented to place, oriented to time and patient oriented x3 HENMT Head: Yes normal to inspection Ears: hearing grossly normal bilaterally General nose exam: Normal external nose present Eyes Pupils: Equal, round and reactive pupils present Resp Effort & Inspection: normal respiratory effort Auscultation: clear to auscultation bilaterally Cardio Rate: regular rate Rhythm: regular rhythm Heart sounds: S1 normal heart sound present and S2 normal heart sound present Back/Spine/Pelvis Cervical Spine: Cervical spine tenderness (posterior-on the left side) Thoracic/Lumbar Spine: No thoracic spinal tenderness Neuro General: oriented to person, oriented to place, oriented to time and patient oriented x3 Cranial nerves: Yes Equal, round and reactive pupils present Extrem Left upper extremity: shoulder/upper arm Details: abnormal to inspection, tenderness Location: of the clavicle and of the A-C joint and abnormal ROM (unable to left arm above head) Details: pain with active ROM and pain with passive ROM; no swelling Coding Level of Care Code Est Pt Level 3 (05641) Diagnoses Acute pain of left shoulder M25.512 Chronicity: acute Pain of left clavicle M89.8X1 Neck pain M54.2 Time Spent (min) 34 Assessment & Plan Assessment & Plan (1) Left shoulder pain: Code(s): M25.512 - Pain in left shoulder Category: Medical Qualifiers: Chronicity: acute Qualified Code(s): M25.512 - Pain in left shoulder (2) Pain of left clavicle: Code(s): M89.8X1 - Other specified disorders of bone, shoulder Category: Medical (3) Neck pain: Code(s): M54.2 - Cervicalgia Category: Medical Plan Referral to orthopedics for chronic pain syndrome management is planned. Gabapentin dosage will be increased, and tramadol will be added to manage pain. Patient to monitor gabapentin effects, especially drowsiness, and report any adverse effects. Orders: Referrals Orthopedics Referral M25.512 - Pain in left shoulder, M54.2 - Cervicalgia, M89.8X1 - Other specified disorders of bone, shoulder Medications: New gabapentin 400 mg PO BEDTIME 30 caps 3RF tramadol 50 mg PO BID PRN 30 tabs 0RF pain 30 days Discontinued azithromycin Discontinued Reason: Duplicate For 250 mg dose pack: take 500 mg today (day 1), then 250 mg for 4 days (days 2-5) 6 tabs 0RF gabapentin Discontinued Reason: Duplicate 100 mg PO TID 90 caps 1RF meloxicam Discontinued Reason: Doctor's Order 15 mg PO DAILY 30 tabs 1RF Patient Instructions: Patient to follow up in 2 months for re-evaluation
[2024-12-05 15:31] VITALS: BP 108/70; PULSE 95; RESP 18; TEMP 36.6; O2SAT 96; BMI 29.1
--- OUTSIDE RECORDS SUMMARY | 2024-12-05 18:33 | XMS_ITS | Clinical Summary ---
Author Organization [facility] Address [address] [place] [address] Care Team Providers Care Asbestos Cement Sheet Supervisor Name Role Phone Benson Patterson MD Primary Care Provider [phone] Allergies Active Allergy Reactions Criticality Noted Date Comments Other 12/03/2016 Seasonal Allergies Medications atorvastatin (LIPITOR) 10 mg tablet Take 1 Tablet by mouth at bedtime. 09/11/2021 Active famotidine (PEPCID) 40 mg tablet Take 1 Tablet by mouth daily. 09/08/2021 Active Active Problems Problem Noted Date Diagnosed Date DDD (degenerative disc disease), cervical 2018 ACL injury tear 12/13/2018 Overview (02/17/2024): Left; follows with [facility] Gastroesophageal reflux disease 09/22/2018 Cervical radicular pain 12/03/2016 Hypercholesteremia 12/03/2016 Anxiety and depression 06/03/2010 Immunizations Immunization Administration Dates Next Due Influenza Quadravalent, MDCK [...] injury te ar; COMMENT: Left; follows with [facility] Family History Medical History Relation Name [...] Health Maintenance Due Date Last Done Comments Colorectal Cancer Screening: Colonoscopy 1975 Hepatitis B Vaccines (1 of 3 - 19+ 3-dose series) 05/10/1994 Pneumococcal Vaccine: Pediatrics (0 to 5 Years) and At-Risk Patients (6 to 49 Years) (1 of 2 - PCV) 05/10/1994 Social Influencers of Health Screening 01/28/2022 DTaP,Tdap,and Td Vaccines (2 - Td or Tdap) 07/06/2022 07/06/2012 Depression Screening 03/01/2024 COVID-19 Vaccine (2 - 2024-2 6 season) 2024 07/17/2020 Influenza Vaccine (#1) 2024 , 12/03/2016 Cholesterol Screening (Lipid Panel) 09/08/2026 09/08/2021 RSV Immunization Adult Patients (1 - 1-dose 75+ series) 05/10/2050 HIV Screening Completed 12/03/2016 Hepatitis C Screening [...] Results * (ABNORMAL) Lipid panel (09/08/2021) Pathologist [facility] [place] LDL/HDL Ratio 8(A) 0 - 4 Triglycerides 337(A) 0 - 150 mg/dL Cholesterol 244(A) 0 - 200 mg/dL HDL 32(A) >=40 mg/dL LDL Cholesterol 145(A) 0 - 100 mg/dL Blood Venous blood specimen / Unknown us Historical Provider LAB BLOOD ORDERABLES Maggie l Result * HIV Screening (12/03/2016) Pathologist [facility] [place] HIV Screening Abstracted us Historical Provider HEALTH MAINTENANCE Final Result * Hepatitis C Screening (12/03/2016) Hepatitis C Screening Abstracted us Historical Provider HEALTH MAINTENANCE Final Result from Last 3 Months or Most Recently Relevant to Health Maintenance Care Teams Asbestos Cement Sheet Supervisor Relationship Specialty Start Date End Date Benson Patterson MD [address] [place] [address] PCP - General Internal Medicine 12/17/20
== END 2024-12-05 16:22 | disposition home or self-care (01) ==
LOC: HO.HMCH 15:20
PROVIDERS: PCP Internal Medicine
DX: M25.512 Pain in left shoulder (principal); M89.8X1 Other specified disorders of bone, shoulder; M54.2 Cervicalgia

== ENCOUNTER → 2024-12-05 15:19 | Outpatient (BNVA) | payer OTHER, SELFPAY | PROVIDERS: PCP Internal Medicine | DX: M25.512 Pain in left shoulder (principal); M89.8X1 Other specified disorders of bone, shoulder; M54.2 Cervicalgia; G89.4 Chronic pain syndrome | CPT/HCPCS: 99212 ==

== ENCOUNTER 2025-01-01 14:52 | Outpatient (AMB) | payer OTHER, SELFPAY ==
[2025-01-01 14:55] VITALS: BP 130/92; PULSE 100; O2SAT 97; BMI 29.9
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
--- OUTSIDE RECORDS SUMMARY | 2025-01-01 16:21 | XMS_ITS | Clinical Summary ---
Author Organization [facility] Address [address] [place] [address] Care Team Providers Care Gameroom Technician Name Role Phone Benson Patterson MD Primary Care Provider [phone] Allergies Active Allergy Reactions Criticality Noted Date Comments Other 12/03/2016 Seasonal Allergies Medications atorvastatin (LIPITOR) 10 mg tablet Take 1 Tablet by mouth at bedtime. 09/11/2021 Active famotidine (PEPCID) 40 mg tablet Take 1 Tablet by mouth daily. 09/08/2021 Active Active Problems Problem Noted Date Diagnosed Date DDD (degenerative disc disease), cervical 2018 ACL injury tear 12/13/2018 Overview (02/17/2024): Left; follows with [facility] Gastroesophageal reflux disease 09/22/2018 Cervical radicular [...] injury te ar; COMMENT: Left; follows with [facility] Family History Medical History Relation Name [...] Results * (ABNORMAL) Lipid panel (09/08/2021) Pathologist [facility] LDL/HDL Ratio 8(A) 0 - 4 Triglycerides 337(A) 0 - 150 mg/dL Cholesterol 244(A) 0 - 200 mg/dL HDL 32(A) >=40 mg/dL LDL Cholesterol 145(A) 0 - 100 mg/dL Blood Venous blood specimen / Unknown us Historical Provider LAB BLOOD ORDERABLES Maggie l Result * HIV Screening (12/03/2016) Pathologist [facility] HIV Screening Abstracted us Historical Provider HEALTH MAINTENANCE Final Result * Hepatitis C Screening (12/03/2016) Hepatitis C Screening Abstracted us Historical Provider HEALTH MAINTENANCE Final Result from Last 3 Months or Most Recently Relevant to Health Maintenance Care Teams Gameroom Technician Relationship Specialty Start Date End Date Benson Patterson MD [address] [place] [address] PCP - General Internal Medicine 12/17/20
== END 2025-01-01 15:48 | disposition home or self-care (01) ==
LOC: HO.HMCH 14:53
PROVIDERS: PCP Internal Medicine; Visit Provider Internal Medicine
DX: Z00.00 Encounter for general adult medical examination without abnormal findings (principal); M54.10 Radiculopathy, site unspecified; M50.30 Other cervical disc degeneration, unspecified cervical region; M46.90 Unspecified inflammatory spondylopathy, site unspecified; E78.2 Mixed hyperlipidemia; Z87.11 Personal history of peptic ulcer disease; F33.9 Major depressive disorder, recurrent, unspecified; F17.200 Nicotine dependence, unspecified, uncomplicated; E66.3 Overweight

== ENCOUNTER → 2025-01-01 14:52 | Outpatient (BNVA) | payer OTHER, SELFPAY | PROVIDERS: PCP Internal Medicine; Visit Provider Internal Medicine | DX: Z00.00 Encounter for general adult medical examination without abnormal findings (principal); M25.512 Pain in left shoulder; M54.10 Radiculopathy, site unspecified; M50.30 Other cervical disc degeneration, unspecified cervical region; M46.90 Unspecified inflammatory spondylopathy, site unspecified; E78.2 Mixed hyperlipidemia; F33.9 Major depressive disorder, recurrent, unspecified; E66.3 Overweight; F17.210 Nicotine dependence, cigarettes, uncomplicated; Z68.29 Body mass index [BMI] 29.0-29.9, adult; Z87.11 Personal history of peptic ulcer disease | CPT/HCPCS: 99396 ==

== ENCOUNTER 2025-01-03 08:23 | Outpatient (REF) | payer OTHER, SELFPAY ==
--- OUTSIDE RECORDS SUMMARY | 2025-01-03 08:36 | XMS_ITS | Clinical Summary ---
Author Organization [facility] Address [address] [place] [address] Care Team Providers Care Supervisor Pipeline Maintenance Name Role Phone Benson Patterson MD Primary Care Provider [phone] Allergies Active Allergy Reactions Criticality Noted Date Comments Other 12/03/2016 Seasonal Allergies Medications atorvastatin (LIPITOR) 10 mg tablet Take 1 Tablet by mouth at bedtime. 09/11/2021 Active famotidine (PEPCID) 40 mg tablet Take 1 Tablet by mouth daily. 09/08/2021 Active Active Problems Problem Noted Date Diagnosed Date DDD (degenerative disc disease), cervical 2018 ACL injury tear 12/13/2018 Overview (02/17/2024): Left; follows with [facility] Gastroesophageal reflux disease 09/22/2018 Cervical radicular [...] and depression Cervical radicular pain 12/03/2016 DX:Cervi nadiar radicular pain Moderate drinker of alcohol 12/03/2016 DX:M oderate drinker of alcohol Hypercholesteremia 12/03/2016 DX:Hyperchole steremia ACL injury tear 12/13/2018 DX:ACL injury te ar; COMMENT: Left; follows with [facility] Family History Medical History Relation Name [...] Results * (ABNORMAL) Lipid panel (09/08/2021) Pathologist [facility] LDL/HDL Ratio 8(A) 0 - 4 Triglycerides 337(A) 0 - 150 mg/dL Cholesterol 244(A) 0 - 200 mg/dL HDL 32(A) >=40 mg/dL LDL Cholesterol 145(A) 0 - 100 mg/dL Blood Venous blood specimen / Unknown us Historical Provider LAB BLOOD ORDERABLES Maggie l Result * HIV Screening (12/03/2016) Pathologist [facility] HIV Screening Abstracted us Historical Provider HEALTH MAINTENANCE Final Result * Hepatitis C Screening (12/03/2016) Hepatitis C Screening Abstracted us Historical Provider HEALTH MAINTENANCE Final Result from Last 3 Months or Most Recently Relevant to Health Maintenance Care Teams Supervisor Pipeline Maintenance Relationship Specialty Start Date End Date Benson Patterson MD [address] [place] [address] PCP - General Internal Medicine 12/17/20
[2025-01-03 08:41] LABS: MANUAL DIFF FLAG NO
[2025-01-03 09:21] LABS: Hematocrit 49.2 % (42.0-52.0); Hemoglobin 16.4 g/dl (14.0-18.0); Imm Gran Abs Auto 0.02 X10*3/uL (0.00-0.03); Imm Gran Pct Auto 0.3 % (0.0-0.4); Lymphocytes Absolute Auto 2.9 X10*3/uL (1.2-4.9); Mean Corpuscular HGB Conc 33.3 g/dl (31.0-36.0); Mean Corpuscular Hemoglobin 30.1 pg (27.0-33.0); Mean Corpuscular Volume 90.3 fL (80.0-98.0); NRBC Abs Auto 0.000 X10*3/uL (0.0-0.012); NRBC Pct Auto 0.0 /100WBC (0.0-0.2); Platelet Count 258 X10*3/uL (160-400); Red Blood Count 5.45 X10*6/uL (4.60-5.80); White Blood Count 7.9 X10*3/uL (4.8-10.8)
[2025-01-03 10:14] LABS: Alanine Aminotransferase 40 U/L (0-40); Albumin Level 4.6 g/dL (3.5-5.0); Alkaline Phosphatase 86 U/L (39-117); Anion Gap 10 (12-20); Aspartate Amino Transferase 34 U/L (5-37); Blood Urea Nitrogen 13 mg/dL (9-16); Calcium 9.1 mg/dL (8.4-10.2); Carbon Dioxide 25 mmol/L (22-29); Chloride 108 mmol/L (96-108); Cholesterol 229 mg/dL (<200); Estimated Glomerular Filt Rate > 60; HDL Cholesterol 31 mg/dL (>40); Magnesium 2.3 mg/dL (1.6-2.6); Potassium 4.4 mmol/L (3.3-5.1); Sodium 139 mmol/L (135-145); Total Protein 7.7 g/dL (6.5-8.0); Triglycerides 201 mg/dL (<150)
[2025-01-03 10:27] LABS: Folate 6.8 ng/mL (> or = 4.0); Vitamin B12 500 pg/mL (200-900)
[2025-01-08 17:17] LABS: Testosterone, Free 110.4 pg/mL (35.0-155.0)
[2025-01-09 16:03] LABS: Anti Nuclear Antibody Screen NEGATIVE (NEGATIVE)
== END 2025-01-03 08:24 | disposition home or self-care (01) ==
LOC: HO.LAB 08:23
PROVIDERS: PCP Internal Medicine; Visit Provider Internal Medicine
DX: E78.00 Pure hypercholesterolemia, unspecified (principal); Z00.00 Encounter for general adult medical examination without abnormal findings; Z12.5 Encounter for screening for malignant neoplasm of prostate; Z01.84 Encounter for antibody response examination; M50.30 Other cervical disc degeneration, unspecified cervical region; M54.12 Radiculopathy, cervical region; M54.50 Low back pain, unspecified; G89.29 Other chronic pain; R79.89 Other specified abnormal findings of blood chemistry; M79.7 Fibromyalgia; D64.9 Anemia, unspecified; E53.8 Deficiency of other specified B group vitamins; E83.42 Hypomagnesemia
CPT/HCPCS: 36415; 80053; 80061; 82306; 82607; 82746; 83735; 84153; 84402; 84403; 84443; 85025; 85652; 86038; 86140; 86431

== ENCOUNTER 2025-01-04 10:02 | Outpatient (REF) | payer OTHER, SELFPAY ==
[2025-01-04 10:39] LABS: Appearance Urine Turbid; Glucose Urine UA Negative (Negative); PH 7.5 (5.0-9.0); Specific Gravity - Urine 1.020 (1.005-1.025); UMIC TRIGGER UACC YES
[2025-01-04 10:47] LABS: UACC Culture Trigger YES
--- OUTSIDE RECORDS SUMMARY | 2025-01-04 11:35 | XMS_ITS | Clinical Summary ---
Author Organization [facility] Address [address] [place] [address] Care Team Providers Care Assembler Fluorescent Lights Name Role Phone Benson Patterson MD Primary Care Provider [phone] Allergies Active Allergy Reactions Criticality Noted Date Comments Other 12/03/2016 Seasonal Allergies Medications atorvastatin (LIPITOR) 10 mg tablet Take 1 Tablet by mouth at bedtime. 09/11/2021 Active famotidine (PEPCID) 40 mg tablet Take 1 Tablet by mouth daily. 09/08/2021 Active Active Problems Problem Noted Date Diagnosed Date DDD (degenerative disc disease), cervical 2018 ACL injury tear 12/13/2018 Overview (02/17/2024): Left; follows with [facility] Gastroesophageal reflux disease 09/22/2018 Cervical radicular [...] injury te ar; COMMENT: Left; follows with [facility] Family History Medical History Relation Name [...] Recently Relevant to Health Maintenance Care Teams Assembler Fluorescent Lights Relationship Specialty Start Date End Date Benson Patterson MD [address] [place] [address] PCP - General Internal Medicine 12/17/20
== END 2025-01-04 10:03 | disposition home or self-care (01) ==
LOC: HO.LNP 10:02
PROVIDERS: Visit Provider Internal Medicine
DX: Z00.00 Encounter for general adult medical examination without abnormal findings (principal); R30.0 Dysuria; M50.30 Other cervical disc degeneration, unspecified cervical region; M54.12 Radiculopathy, cervical region; M54.50 Low back pain, unspecified; G89.29 Other chronic pain
CPT/HCPCS: 81001; 87086

== ENCOUNTER 2025-01-10 13:47 | Outpatient (AMB) | payer OTHER, SELFPAY ==
--- NOTE | 2025-01-10 14:05 | A.OFFVIS_ITS ---
Vital Signs 01/10/25 14:09 Height 5 ft 6 in Weight 183 lb 13.848 oz BMI 29.7 BP 115/82 Blood Pressure Location Lt brachial Position Sitting Pulse 80 Pulse Source Pulse Oximeter Pulse Oximetry (%) 99 Oxygen Delivery Method Room Air Intake Visit Reasons: Spondylosis Intake Note: Patient presents for Spondylosis follow up. Allergies hydrocodone (From VICODIN) Allergy (Intermediate, Verified 01/10/25 14:09) HIVES vicodin Allergy (Intermediate, Uncoded 01/01/25 15:24) Hives SEASONAL ALLERGIES Allergy (Mild, Uncoded 01/01/25 15:24) NASAL STUFFINESS Medication List - Last Reconciled 01/10/25 by Tanika Clements MD esomeprazole magnesium 20 mg PO BID 90 days gabapentin 400 mg PO BEDTIME tramadol 50 mg PO BID PRN 30 days HPI Comments Details: Patient is a 49 y.o. male current every day smoker who is here today for follow up of lumbar spondylosis Interval History: Patient last seen 01/07/24 with mi - New patient visit for back pain - Given the history, there was concern for inflammatory disease of his back - Plan was to trial Humira for 4 months then follow up Patient lost to follow up Today - Not on DMARDs - Did not get Humira from insurance - Still having back pain involving L-spine and C-spine - also complaining of left shoulder pain. Was told by a physician that he has frozen shoulder Rheumatologic History: Initial History: Patient states that he has had back pain since his teens. First involving his neck and then started to include his lower back. His lower back has been pro gressively getting worse over the past several years which has precluded him from his activities of daily living. Pain is associated with stiffness in the AM when he wakes up. The stiffness lasts throughout the day. Sometimes the pain is better with movement and worse with rest but other times it is better with rest and worse with movement. The pain wakes him out of sleep. Also has alternating buttock pain. Has also been having diarrhea with blood and mucus. Currently awaiting colonoscopy Feb 28. Had a colonoscopy in the past but that was normal. No known family history of autoimmune disease. Smoke: Cigarette smoking 30+ pack years EtOH: Occasional Other: Marijuana and occasional inhaled cocaine Current Rheumatology Medication(s): [facility] Medical History Overweight (BMI 25.0-29.9) Mixed hyperlipidemia Depression Adalimumab (Humira) long-term use Smoker Chronic low back pain History of gastric ulcer GERD (gastroesophageal reflux disease) Surgical History History of esophagogastroduodenoscopy (EGD) H/O colonoscopy History of left knee surgery Family History Other Family history non-contributory Social History Housing: House Are you a primary home health care respiratory therapist to a significant other at home: No Do you presently have visiting nurse or other home services: No Patient Tobacco Use Status: Current everyday Tobacco user Tobacco use type: Cigarette Cigarette Packs Per Day: 0.5 Cigarettes Per Day: 10.0 Years Smoked: 35 e-Cigarette/Vaping Use: Never Used service: No Current occupational status: employed Cognitive needs: No Hearing needs: No Vision needs: No Review of Systems Narrative Review of Systems Constitutional: Denies fever, chills, weight loss ENT: Denies vision changes, eye pain or eye redness, dental caries, dry mouth GI: Denies nausea, vomiting, diarrhea, abdominal pain, change in BM Pulm: Denies SOB, GARCIA, hemoptysis, wheezing Cards: Denies chest pain, palpitations Skin: Denies Raynaud's, rash, nail changes, photosensitivity, FOIL OPERATOR: Denies headaches, weakness, paresthesias, recurrent falls MSK: as per HPI All other systems reviewed and are unremarkable except noted above Physical Exam Exam Exam: Vital signs reviewed Physical Examination CONSTITUITIONAL Patient alert and cooperative. In painful distress not able to sit for prolonged periods on examine table MSK Hands * Right Hand: Able to make a fist. No swelling or tenderness to palpation of the MCPs, PIPs or DIPs. * Left Hand: Able to make a fist. No swelling or tenderness to palpation of the MCPs, PIPs or DIPs. * Herbedens nodes noted bilaterally Wrists * Right Wrist: Full ROM to flexion and extension. No swelling or TTP * Left Wrist: Full ROM to flexion and extension. No swelling or TTP Elbows * Right Elbow: No swelling or TTP. No TTP of the medial epicondyle. TTP of the lateral epicondyle * Left Elbow: No swelling or TTP. No TTP of the medial epicondyle. TTP of the lateral epicondyle Shoulders * Right shoulder: No swelling noted. No TTP of the AC joint. No TTP of the subacromial bursa. No TTP of the posterior shoulder * Left shoulder: No swelling noted. No TTP of the AC joint. TTP of the subacromial bursa. No TTP of the posterior shoulder * Decreased ROM bilaterally Knees * Right knee: No swelling noted. No TTP of the knee joint line. No TTP of pes anserine bursa * Left knee: No swelling noted. No TTP of the knee joint line. No TTP of pes anserine bursa. * Crepitations felt bilaterally Ankles * Right ankle: Good ankle dorsiflexion and plantar flexion. No swelling. No TTP of the ankle joint * Left ankle: Good ankle dorsiflexion and plantar flexion. No swelling. No TTP of the ankle joint Feet * Right foot: Negative squeeze test * Left foot: Negative squeeze test Tender points? * No tenderness to palpation of the bilateral trapezius, supraspinatus, anterior costochondral junctions, bilateral suboccipital muscle insertions Back * Nisha's test 10 -- >13cm (positive), negative occiput to wall test SKIN No rashes Vital Signs: Last Vital Signs Pulse 80 01/10/25 14:09 BP 115/82 01/10/25 14:09 Pulse Ox 99 01/10/25 14:09 Oxygen Delivery Method Room Air 01/10/25 14:09 BMI result Body Mass Index 29.7 Office Procedures AMB Joint Injection/Aspiration Joint Injection/Aspiration Details: Procedure was explained to the patient and informed consent was obtained. ? Risks associated with the procedure were discussed with the patient including but not limited to bleeding, infection, drug reactions and reactions to the topical anesthetic. Patient made aware of signs to look out for infectious complications. The area of interest was identified and confirmed with patient. ?This was subsequently cleaned with chlorhexidine x 2. ? The area was then anesthetized using ethyl chloride spray. 40 mg Kenalog with 1 cc 1% lidocaine was injected without issue. ?Minimal to no bleeding. ?Patient tolerated procedure. Primary Site: Left Shoulder (subacromial bursa) Prep: site was prepped using aseptic technique and ethochloride spray was applied Injected: 40 mg of, Kenalog, with 1 mL of, 1% plain Lidocaine and in the subcromial space Approach Used: anterior Procedure: The patient tolerated the procedure well Coding 99930 - Glenohumeral/Tronchanteric Bursa/Intraarticular Procedure code (CPT) selection complete Office Meds lidocaine (PF) 10 mg/mL (1 %) injection solution Performing Provider: Tanika Clements MD Performing Location[place] [facility] Administered by: Tanika Clements MD on 01/10/25 15:49 Dose Route Admin Location Dispensed Lot Number Expiration Date [facility] [employer] 1 mL Infiltration left subacromial bursa 2 mL [id number] 05/29/26 [phone] [employer] Total Dispensed Waste 2 mL 50 % Kenalog 40 mg/mL suspension for injection Performing Provider: Tanika Clements MD Performing Location[place] [facility] Administered by: Tanika Clements MD on 01/10/25 15:49 Dose Route Admin Location Dispensed Lot Number Expiration Date [facility] [employer] 40 mg intrabursal left subacromial bursa 1 mL [id number] 08/28/26 [id number] [employer] Total Dispensed Waste 1 mL 0 % Results Reviewed Results Reviewed: Laboratory Tests 01/07/24 01/03/25 11:13 08:38 WBC 7.9 RBC 5.45 Hgb 16.4 Hct 49.2 Plt Count 258 ESR 8 Sodium 139 Potassium 4.4 Chloride 108 Carbon Dioxide 25 BUN 13 Creatinine 1.02 AST 34 ALT 40 C-Reactive Protein 1.04 H 0.61 H Laboratory Tests 01/07/24 01/03/25 11:13 08:38 Rheumatoid Factor < 13.0 LELA Screen NEGATIVE HLA-B27 Negative Laboratory Tests 11/23/23 09:13 Hep Bs Antigen Negative Hep Bs Antibody REACTIVE Hep B Core Total Ab Nonreactive Hepatitis C Ab (EIA) Nonreactive MR L Spine 04/2020 FINDINGS: VERTEBRAL BODIES AND PARASPINAL STRUCTURES: There is anatomic alignment of the vertebral bodies. There is narrowing of and loss of signal from the intervertebral discs at L1-L2 and L5-S1. There is mild loss of signal from the intervertebral disc at L4-L5. There are degenerative endplate contour changes at L1-L2. There is mixed edematous and fatty endplate signal change along the inferior endplate of L1 anteriorly. Vertebral body heights are maintained. No fractures are demonstrated. Overall, marrow signal is homogenous. There is mild fullness of the left adrenal gland, without focal nodule. The visualized pelvic structures are unremarkable. CONUS MEDULLARIS AND CAUDA EQUINA: Normal, terminating at the level of L1. The lower thoracic spinal cord appears normal. The cauda equina nerve roots and filum terminale appear normal. SPINAL LEVELS: L1-L2: There is mild bilateral facet arthropathy. There is a small posterior disc protrusion to the right of midline with an annular fissure without significant mass effect on the thecal sac. The neural foramina are patent bilaterally. There is no central stenosis. L2-L3: There is mild to moderate bilateral facet arthropathy with ligamenta flava hypertrophy and a small right-sided facet joint effusion. Disc contour is normal. There is no central stenosis or foraminal narrowing. L3-L4: There is mild to moderate bilateral facet arthropathy with ligamenta flava hypertrophy and a right facet joint effusion. There is a mild diffuse disc bulge, without foraminal nerve root impingement. There is no central stenosis. L4-L5: There is mild to moderate bilateral facet arthropathy with ligamenta flava hypertrophy and facet joint effusions. There is a diffuse disc bulge with minimal distortion of the ventral thecal sac. There is no central stenosis, and the neural foramina are patent bilaterally. L5-S1: There is mild bilateral facet arthropathy. There is a right paracentral disc protrusion with an annular fissure which mildly distorts the ventral thecal sac. The neural foramina are patent bilaterally. There is no impingement on the traversing S1 nerve roots. There is no central stenosis. MR/MR lumbar spine wo con IMPRESSION: 1. There is a right paracentral disc protrusion at L5-S1 with minimal distortion of the ventral thecal sac. There is no central stenosis or nerve root impingement. 2. Milder spondylitic and facet arthropathic changes are demonstrated at other levels as described above. There is no central stenosis or neural foraminal narrowing. Assessment & Plan Assessment & Plan (1) Ankylosing spondylitis: Code(s): M45.9 - Ankylosing spondylitis of unspecified sites in spine Qualifiers: Ankylosing spondylitis location: multiple sites in spine Qualified Code(s): M45.0 - Ankylosing spondylitis of multiple sites in spine Plan: #?Ankylosing spondylitis Patient is a 49-year-old male with chronic back pain since teenager. Given his longstanding history of back pain there is concern that he could have underlying inflammatory back pain. So far his HLA B27 is negative, and he has a mild inflammatory marker elevation in his CRP We will do a trial of anti TNF for 4 months to see if there is any benefit Plan - Adalimumab-aaty 40mg SC every 2 weeks - Labs today: Hep B and C, T spot - RTC 4 months - Labs before visit: CBC, CMP, ESR, CRP (2) Bursitis of left shoulder: Code(s): M75.52 - Bursitis of left shoulder Plan: #Bursitis of left shoulder Status post steroid injection today (3) Adalimumab (Humira) long-term use: Code(s): Z79.620 - halfway (current) use of immunosuppressive biologic Category: Medical Plan: #Long-term Use of TNF Inhibitors: Adalimumab-aaty Discussed with the patient the benefits and risks of TNF inhibitors for the management of the rheumatic condition Benefits include reduce pain, maintenance of remission and reduction of flares as well as ?progression of the disease Risks include injection sites/infusion reactions, serious infections (such as bacterial infections, opportunistic infections), malignancy, delaminating syndromes, autoimmune phenomena, CHF exacerbations, palmar plantar psoriasis and cytopenias Recommended rotating injection sites, and holding medication during and for up to 1 week after resolution of a febrile illness or open skin wound Plan I spent 30 minutes reviewing the record and labs, taking a history, examining the patient, discussing the treatment plan, ordering diagnostic work up and documenting in the medical record Orders: Orders Hepatitis B,C Profile Today Z79.899 - Other detention (current) drug therapy T Spot TB Today Z79.899 - Other superintendent container terminal (current) drug therapy AMB Joint Injection/Aspiration Today M75.52 - Bursitis of left shoulder Referrals Pain Management Referral M47.816 - Spondylosis without myelopathy or radiculopathy, lumbar region Medications: New adalimumab-aaty 40 mg (0.4 mL) subcut Q2W 2 ea 5RF M45.9 - Ankylosing spondylitis of unspecified sites in spine Coding Level of Care Code Est Pt Level 4 (81862) Complex EM visit Add On G2211 Diagnoses Ankylosing spondylitis of multiple sites in spine M45.0 Ankylosing spondylitis location: multiple sites in spine Bursitis of left shoulder M75.52 Adalimumab (Humira) long-term use Z79.620 CPT Codes Coding - Joint 7: 89639 - Glenohumeral/Tronchanteric Bursa/Intraarticular ([id number])
[2025-01-10 14:09] VITALS: BP 115/82; PULSE 80; O2SAT 99; BMI 29.7
--- OUTSIDE RECORDS SUMMARY | 2025-01-10 16:50 | XMS_ITS | Clinical Summary ---
Author Organization [facility] Address [address] [place] [address] Care Team Providers Care Inspector Floor Name Role Phone Benson Patterson MD Primary Care Provider [phone] Allergies Active Allergy Reactions Criticality Noted Date Comments Other 12/03/2016 Seasonal Allergies Medications atorvastatin (LIPITOR) 10 mg tablet Take 1 Tablet by mouth at bedtime. 09/11/2021 Active famotidine (PEPCID) 40 mg tablet Take 1 Tablet by mouth daily. 09/08/2021 Active Active Problems Problem Noted Date Diagnosed Date DDD (degenerative disc disease), cervical 2018 ACL injury tear 12/13/2018 Overview (02/17/2024): Left; follows with [facility] Gastroesophageal reflux disease 09/22/2018 Cervical radicular [...] injury te ar; COMMENT: Left; follows with [facility] Family History Medical History Relation Name [...] Recently Relevant to Health Maintenance Care Teams Inspector Floor Relationship Specialty Start Date End Date Benson Patterson MD [address] [place] [address] PCP - General Internal Medicine 12/17/20
== END 2025-01-10 14:53 | disposition home or self-care (01) ==
LOC: HO.RHES 13:47
PROVIDERS: PCP Internal Medicine; Visit Provider Student in an Organized Health Care Education/Training Program
DX: M45.0 Ankylosing spondylitis of multiple sites in spine (principal); M75.52 Bursitis of left shoulder; Z79.620 Long term (current) use of immunosuppressive biologic
CPT/HCPCS: 20610; 99214

== ENCOUNTER 2025-01-10 13:47 | Outpatient (REF) | payer OTHER, SELFPAY ==
[2025-01-11 03:48] LABS: HBc Num1 0.05 S/CO (0.00-0.79); HBsAGNum1 0.53 S/CO (0.00-0.99); Hepatitis B Surface Antigen Negative (Negative); ~HepC Num1 0.14 S/CO (0.00-0.79); ~Hepatitis B Surface Antibody REACTIVE (Nonreactive); ~Hepatitis C Antibody Nonreactive (Nonreactive)
[2025-01-13 18:02] LABS: TS Negative Control Passed; TS Panel A 0; TS Panel B 0; TS Positive Control Passed; TSpotTB Negative (Negative)
== END 2025-01-10 13:48 | disposition home or self-care (01) ==
LOC: HO.HKASLDS 13:47
PROVIDERS: PCP Internal Medicine; Visit Provider Student in an Organized Health Care Education/Training Program
DX: M47.816 Spondylosis without myelopathy or radiculopathy, lumbar region (principal); M45.0 Ankylosing spondylitis of multiple sites in spine; M75.52 Bursitis of left shoulder; Z79.620 Long term (current) use of immunosuppressive biologic; Z79.899 Other long term (current) drug therapy
CPT/HCPCS: 20610; 36415; 86481; 86704; 86706; 86803; 87340; 99212; J2003; J3301

== ENCOUNTER 2025-01-30 09:16 | Outpatient (REF) | payer OTHER, SELFPAY ==
--- NOTE | 2025-01-30 09:18 | EMG_ITS ---
Chief complaint: Numbness and tingling in hands Referred by: Bartolo Connell MD Procedure done: NCS and EMG of bilateral upper extremities Bilateral median and ulnar motor studies were performed. Bilateral median and ulnar mixed sensory studies were performed, radial sensory studies were performed and EMG was performed. Findings: Bilateral median motor distal latencies were mildly prolonged. Similar pattern was noted with left median mixed sensory distal latencies. Ulnar studies revealed moderate slowing of ulnar motor conduction velocity across elbow bilaterally. Impression: 1. Dopw-lc-wrruthcd left and mild right median neuropathy across carpal tunnel 2. Oqds-mp-[id number] bilateral ulnar neuropathy across cubital tunnel Codin [id number] x2 MTDD
--- OUTSIDE RECORDS SUMMARY | 2025-01-30 09:50 | XMS_ITS | Clinical Summary ---
Author Organization [facility] Address [address] [place] [address] Care Team Providers Care Manager Of Applications Development Name Role Phone Benson Patterson MD Primary Care Provider [phone] Allergies Active Allergy Reactions Criticality Noted Date Comments Other 12/03/2016 Seasonal Allergies Medications atorvastatin (LIPITOR) 10 mg tablet Take 1 Tablet by mouth at bedtime. 09/11/2021 Active famotidine (PEPCID) 40 mg tablet Take 1 Tablet by mouth daily. 09/08/2021 Active Active Problems Problem Noted Date Diagnosed Date DDD (degenerative disc disease), cervical 2018 ACL injury tear 12/13/2018 Overview (02/17/2024): Left; follows with [facility] Gastroesophageal reflux disease 09/22/2018 Cervical radicular [...] injury te ar; COMMENT: Left; follows with [facility] Family History Medical History Relation Name [...] Recently Relevant to Health Maintenance Care Teams Manager Of Applications Development Relationship Specialty Start Date End Date Benson Patterson MD [address] [place] [address] PCP - General Internal Medicine 12/17/20
== END 2025-01-30 09:17 | disposition home or self-care (01) ==
LOC: HO.NEURO 09:16
PROVIDERS: PCP Internal Medicine; Visit Provider Internal Medicine
DX: R20.2 Paresthesia of skin (principal); R20.0 Anesthesia of skin; M54.10 Radiculopathy, site unspecified
CPT/HCPCS: 95886; 95911

== ENCOUNTER → 2025-01-30 09:18 | Outpatient (BNV) | payer OTHER, SELFPAY | PROVIDERS: PCP Internal Medicine; Visit Provider Psychiatry & Neurology Neurology | DX: R20.0 Anesthesia of skin (principal); G56.03 Carpal tunnel syndrome, bilateral upper limbs | CPT/HCPCS: 95886; 95911 ==

== ENCOUNTER 2025-02-02 09:18 | Outpatient (AMB) | payer OTHER, SELFPAY ==
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
[2025-02-02 09:26] VITALS: BP 139/86; PULSE 93; O2SAT 97; BMI 29.6
== END 2025-02-02 09:51 | disposition home or self-care (01) ==
LOC: HO.PMC 09:19
PROVIDERS: PCP Internal Medicine; Visit Provider Nurse Practitioner Family
DX: M54.2 Cervicalgia (principal); M54.50 Low back pain, unspecified; G89.29 Other chronic pain; M50.30 Other cervical disc degeneration, unspecified cervical region; M62.838 Other muscle spasm; M47.812 Spondylosis without myelopathy or radiculopathy, cervical region
CPT/HCPCS: 99204

== ENCOUNTER → 2025-02-02 09:18 | Outpatient (BNVA) | payer OTHER, SELFPAY | PROVIDERS: PCP Internal Medicine; Visit Provider Nurse Practitioner Family | DX: G89.29 Other chronic pain (principal); M54.50 Low back pain, unspecified; M47.812 Spondylosis without myelopathy or radiculopathy, cervical region; M50.33 Other cervical disc degeneration, cervicothoracic region; M62.838 Other muscle spasm | CPT/HCPCS: 99202 ==

== ENCOUNTER 2025-02-05 11:22 | Outpatient (AMB) | payer OTHER, SELFPAY ==
[2025-02-05 11:27] VITALS: BP 132/88; PULSE 84; TEMP 36.5; O2SAT 99; BMI 29.9
--- NOTE | 2025-02-05 11:27 | MHC.PC.OV ---
Vital Signs 02/05/25 11:27 Height 5 ft 6 in Weight 185 lb BMI 29.9 BP 132/88 Blood Pressure Location Lt brachial Position Sitting Pulse 84 Pulse Source Pulse Oximeter Temp 97.7 F Temp Source Temporal Artery Scan Pulse Oximetry (%) 99 Oxygen Delivery Method Room Air Intake Visit Reasons: 2 month f/u Accompanied by: Spouse Allergies hydrocodone (From VICODIN) Allergy (Intermediate, Verified 02/05/25 17:42) HIVES vicodin Allergy (Intermediate, Uncoded 02/05/25 17:42) Hives SEASONAL ALLERGIES Allergy (Mild, Uncoded 02/05/25 17:42) NASAL STUFFINESS Medication List - Last Reconciled 02/05/25 by ORTEGA Reyez adalimumab (Humira(CF) Pen) 40 mg (0.4 mL) subcut Q2W esomeprazole magnesium 20 mg PO BID 90 days gabapentin 400 mg PO BEDTIME tramadol 50 mg PO BID PRN 30 days varenicline tartrate (Chantix Starting Month Box) PO PER PKG DIR Tobacco use date assessed: 02/05/25 Dental Screening Dental Screen Date: 02/05/25 Did you have a dental visit in the last 12 months?: No Did you have a dental problem in the last 6 months where you did not have access to dental care?: No Was dental information given to patient?: Patient has dentist HPI HPI Comments History of Present Illness Details The patient is a 49 year old male presenting for follow-up on nerve test results, discussion of smoking cessation, and review of recent lab work. The patient reports persistent symptoms of bilateral carpal tunnel syndrome, which was diagnosed via a recent nerve test. The results showed [id number] bilateral carpal tunnel syndrome and involvement of the ulnar nerve. His symptoms include his fingertips being asleep, occurring while sitting and driving, and sharp pains up and down his arm to his armpit, with no change in symptom severity. A lead based paint technician has already referred him to a hand specialist, and a cervical spine MRI was previously considered but not covered by insurance. The patient reports feeling exhausted after only an hour or two of work, feeling as if he has worked a full day. Even after what he considers a good night's rest, he feels tired upon waking and becomes exhausted quickly once he starts an activity. This fatigue started over the summer. He reports taking a multivitamin. Regarding his social history, the patient wishes to quit smoking and wants to use Chantix. His coffee intake has increased from one or two cups to four 12-ounce cups per day, and he drinks a lot of coffee throughout the day. He also drinks alcohol, though the frequency is described as mild. Past medical workup for fatigue included an LELA, which was negative. He is not anemic. He is on Humira to investigate if an autoimmune condition is causing his back issues, but he has seen no effect. Health Maintenance - Smoking Cessation: The patient expressed a desire to quit smoking and requested Chantix. - Diet and Nutrition: Discussed the impact of diet on cholesterol levels. - Hydration: Advised to increase water intake to counteract the diuretic effects of excessive coffee consumption, which may be contributing to fatigue. Social History - Substance Use: The patient is a smoker and wishes to quit. - He drinks alcohol mildly. - Nutritional Intake: The patient consumes a large amount of coffee, recently increasing from one or two cups to four 12-ounce cups daily. - The patient's diet contributes to elevated cholesterol levels. Results - Labs: Recent labs show a slight increase in lipid levels, with triglycerides at 201 mg/dL, total cholesterol at 228 mg/dL, and LDL cholesterol at 158 mg/dL. - Vitamin D is slightly low at 29.7 ng/mL. - Testosterone level is good. - LELA test was negative. - CBC results indicate no anemia. - Diagnostics: Nerve conduction study results indicate mild to moderate bilateral carpal tunnel syndrome and ulnar nerve involvement. [facility] Medical History Overweight (BMI 25.0-29.9) Mixed hyperlipidemia Depression Adalimumab (Humira) long-term use Smoker Chronic low back pain History of gastric ulcer GERD (gastroesophageal reflux disease) Surgical History History of esophagogastroduodenoscopy (EGD) H/O colonoscopy History of left knee surgery Family History Other Family history non-contributory Social History Housing: House Are you a primary occasional caregiver to a significant other at home: No Do you presently have visiting nurse or other home services: No Alcohol intake: current Alcohol intake frequency: holidays/special occasions only Patient Tobacco Use Status: Current everyday Tobacco user Tobacco use type: Cigarette Cigarette Packs Per Day: 0.5 Cigarettes Per Day: 20 Years Smoked: 35 Packs Per Year: 18 Packs per year/per ci.00 e-Cigarette/Vaping Use: Never Used Substance Use Type: Marijuana service: No Current occupational status: employed Cognitive needs: No Hearing needs: No Vision needs: No Questionnaire PHQ-9 Over the last 2 weeks, how often have you been bothered by any of the following problems? 1. Little interest or pleasure in doing things: several days 2. Feeling down, depressed, or hopeless: several days 3. Trouble falling or staying asleep, or sleeping too much: more than half the days 4. Feeling tired or having little energy: more than half the days 5. Poor appetite or overeating: several days 6. Feeling bad about yourself - or that you are a failure or have let yourself or your family down: more than half the days 7. Trouble concentrating on things, such as reading the newspaper or watching television: more than half the days 8. Moving or speaking so slowly that other people could have noticed. Or the opposite - being so fidgety or restless that you have been moving around a lot more than usual: more than half the days 9. Thoughts that you would be better off or of hurting yourself in some way: not at all Total score: 13 Source: Developed by Drs. Alfonzo Cartagena, Coral Christian, Usman Ramon and colleagues, with an educational carli from [employer]. Thrive Questionnaire Date Thrive assessed: 10/05/24 I am a: Patient What is your living situation today?: I have a steady place to live Within the past 12 months, did the food you bought not last and you didn't have the money to get more?: I choose not to answer this question Within the past 12 months, did you worry whether your food would run out before you got money to buy more?: I choose not to answer this question Do you have trouble paying for medicines?: I choose not to answer this question Do you have trouble getting transportation to medical appointments?: I choose not to answer this question Do you have trouble paying your heating and electricity bill?: I choose not to answer this question Do you have trouble taking care of your child, family member or friend?: I choose not to answer this question Do you have trouble with day-to-day activities such as bathing, preparing meals, shopping, managing finances, etc.?: I choose not to answer this question Are you currently unemployed and looking for a job?: I choose not to answer this question Are you interested in more education?: I choose not to answer this question Please select the resources that you would like help with: None Currently or been in a relationship where the following occur: I choose not to answer THRIVE Score: 0 AUDIT C Alcohol Use Questionnaire (AUDIT-C) 1. How often do you have a drink containing alcohol?: Monthly or less 2. How many drinks containing alcohol do you have on a typical day when you are drinking?: 1 or 2 3. How often do you have six or more drinks on one occasion?: Never Total Score: 1 LIZA-7 AMB Questionnaire LIZA-7 Date LIZA - 7 assessed: 01/01/25 Feeling nervous, anxious, or on edge: 0 = Not at all Not being able to stop or control worryin = Not at all Worrying too much about different things: 0 = Not at all Trouble relaxin = Not at all Being so restless that it is hard to sit still: 0 = Not at all Becoming easily annoyed or irritable: 0 = Not at all Feeling afraid as if something awful might happen: 0 = Not at all Total LIZA-7 score (0-4 normal; 5-9 mild; 10-14 moderate; 15-21 severe): 0 Source: Developed by Drs. Alfonzo Cartagena, Coral Christian, Usman Ramon and colleagues, with an educational carli from [employer]. Review of Systems Narrative Review of Systems - Neurological: Reports his fingertips are asleep, sharp pains up and down his arm to his armpit, and dizziness. - Constitutional: Reports fatigue and feeling exhausted quickly after minimal activity, as well as disturbed sleep with tossing and turning. - Hematologic/Lymphatic: Denies anemia. Const Reports lethargy Eyes Denies loss of vision ENT Reports neck pain Card Denies chest pain, Denies rapid heart rate, Denies leg edema and Denies dyspnea Resp Denies dyspnea Musc Reports arthralgias (left shoulder), Reports neck pain and Reports radiating pain into limb (posterior left arm) Neuro Denies loss of vision Physical exam (Primary Care) Vital Signs: Last Vital Signs Temp 97.7 F 02/05/25 11:27 Pulse 84 02/05/25 11:27 BP 132/88 02/05/25 11:27 Pulse Ox 99 02/05/25 11:27 Oxygen Delivery Method Room Air 02/05/25 11:27 BMI result Body Mass Index 29.9 Tobacco/Smoking Status: Tobacco use Status Tobacco use date assessed 02/05/25 02/05/25 11:31 Patient Tobacco Use Status Current everyday Tobacco 02/05/25 11:31 Tobacco use type Cigarette 02/05/25 11:31 e-Cigarette/Vaping Use Never Used 02/05/25 11:31 PHQ-9: PHQ-9 Score PHQ-9: Total score 13 02/05/25 17:46 Thrive Assessment: Date of Thrive Assessment Date Thrive assessed 10/05/24 02/05/25 11:31 Currently or been in a relationship where the following occur: I choose not to answer Narrative Physical Exam - Lungs: Clear to auscultation bilaterally. Const General: alert and awake Orientation/consciousness: oriented to person, oriented to place, oriented to time and patient oriented x3 HENMT Head: Yes normal to inspection Ears: hearing grossly normal bilaterally General nose exam: Normal external nose present Eyes Pupils: Equal, round and reactive pupils present Resp Effort & Inspection: normal respiratory effort Auscultation: clear to auscultation bilaterally Cardio Rate: regular rate Rhythm: regular rhythm Heart sounds: S1 normal heart sound present and S2 normal heart sound present Back/Spine/Pelvis Cervical Spine: Cervical spine tenderness (posterior-on the left side) Thoracic/Lumbar Spine: No thoracic spinal tenderness Neuro General: oriented to person, oriented to place, oriented to time and patient oriented x3 Cranial nerves: Yes Equal, round and reactive pupils present Extrem Left upper extremity: shoulder/upper arm Details: abnormal to inspection, tenderness Location: of the clavicle and of the A-C joint and abnormal ROM (unable to left arm above head) Details: pain with active ROM and pain with passive ROM; no swelling Results Reviewed Results Reviewed: Laboratory Tests 01/03/25 01/04/25 01/10/25 08:38 08:00 15:00 WBC 7.9 RBC 5.45 Hgb 16.4 Hct 49.2 MCV 90.3 MCH 30.1 MCHC 33.3 RDW 13.8 Plt Count 258 Sodium 139 Potassium 4.4 Chloride 108 Carbon Dioxide 25 Anion Gap 10 L BUN 13 Creatinine 1.02 Estimated GFR > 60 Fasting Glucose 92 Calcium 9.1 Magnesium 2.3 Total Bilirubin 0.5 AST 34 ALT 40 Alkaline Phosphatase 86 C-Reactive Protein 0.61 H Total Protein 7.7 Albumin 4.6 Triglycerides 201 H Cholesterol 229 H LDL Cholesterol, Calc 158 H HDL Cholesterol 31 L PSA Screen 0.42 Vitamin B12 500 25-OH Vitamin D Total 29.7 L Folate 6.8 TSH 1.75 Total Testosterone 699 Fr Testosterone Dialys 110.4 Urine Color Yellow Urine Appearance Turbid Urine pH 7.5 Ur Specific [place] 1.020 Urine Protein Negative Urine Glucose (UA) Negative Urine Ketones Negative Urine Blood Negative Urine Nitrite Negative Ur Leukocyte Esterase Small (1+) H Urine RBC 0-2 Urine WBC 21-50 H Ur Squamous Epith Cells 0-2 Urine Bacteria None Seen Hyaline Casts 0-2 LELA Screen NEGATIVE Hep Bs Antigen Negative Hep Bs Antibody REACTIVE Hep B Core Total Ab Nonreactive Hepatitis C Ab (EIA) Nonreactive TB Test (T-Spot) Com Negative TB Test Nil Control Passed TB Test Positive Cntrl Passed Coding Level of Care Code Est Pt Level 4 (39826) Diagnoses Bilateral carpal tunnel syndrome G56.03 Laterality: bilateral Cubital tunnel syndrome of both upper extremities G56.23 Laterality: bilateral Hyperlipidemia, unspecified hyperlipidemia type E78.5 Hyperlipidemia type: unspecified Overweight (BMI 25.0-29.9) E66.3 Vitamin D deficiency E55.9 Fatigue, unspecified type R53.83 Fatigue type: unspecified Cervical radiculopathy M54.12 Smoker F17.200 Time Spent (min) 35 Assessment & Plan Assessment & Plan (1) Carpal tunnel syndrome: Code(s): G56.00 - Carpal tunnel syndrome, unspecified upper limb Category: Medical Qualifiers: Laterality: bilateral Qualified Code(s): G56.03 - Carpal tunnel syndrome, bilateral upper limbs (2) Cubital tunnel syndrome: Code(s): G56.20 - Lesion of ulnar nerve, unspecified upper limb Category: Medical Qualifiers: Laterality: bilateral Qualified Code(s): G56.23 - Lesion of ulnar nerve, bilateral upper limbs (3) HLD (hyperlipidemia): Code(s): E78.5 - Hyperlipidemia, unspecified Category: Medical Qualifiers: Hyperlipidemia type: unspecified Qualified Code(s): E78.5 - Hyperlipidemia, unspecified (4) Overweight (BMI 25.0-29.9): Code(s): E66.3 - Overweight Category: Medical (5) Vitamin D deficiency: Code(s): E55.9 - Vitamin D deficiency, unspecified Category: Medical (6) Fatigue: Code(s): R53.83 - Other fatigue Category: Medical Qualifiers: Fatigue type: unspecified Qualified Code(s): R53.83 - Other fatigue (7) Cervical radiculopathy: Code(s): M54.12 - Radiculopathy, cervical region Category: Medical (8) Smoker: Code(s): F17.200 - Nicotine dependence, unspecified, uncomplicated Category: Social Hx Plan Plan Patient was informed and verbally consented to the use of an ambient scribe for clinic note documentation during this visit. 1. Bilateral Carpal Tunnel Syndrome And Ulnar Nerve Entrapment The patient will continue with the referral to a hand specialist for management of his mild to moderate bilateral carpal tunnel syndrome and ulnar nerve compression. To rule out cervical spine involvement, a repeat evaluation for a cervical spine MRI will be attempted. 2. Hyperlipidemia Given the slight increase in cholesterol and triglyceride levels, a repeat lipid panel will be performed in three months. I will consult with Dr. Connell to determine if any additional labs are needed at the three-month follow-up. Labs should be drawn one week prior to his next appointment in April. 3. Fatigue Recent labs, including LELA, CBC, vitamin D, and testosterone were largely unremarkable in explaining the patient's fatigue. The fatigue is likely due to dehydration from excessive coffee intake. The patient is advised to significantly increase his water intake. Other potential lab abnormalities will be considered for the three-month follow-up blood work. 4. Tobacco Use Disorder A prescription for Chantix will be provided for smoking cessation. The patient should use either Chantix or nicotine replacement, but not both concurrently. If Chantix is not effective, other alternatives will be considered. Discussion Notes I reviewed the patient's recent nerve study, which confirmed mild to moderate bilateral carpal tunnel syndrome and ulnar nerve involvement. We discussed that he has an existing referral to a hand specialist and that we will also try to get a cervical spine MRI to ensure his symptoms are not originating from his neck. I explained that his recent lab results showed a slight increase in his cholesterol levels, which are heading in the wrong direction, and that we will recheck these in three months. We discussed his significant fatigue and I explained that while his workup for common causes like anemia and low testosterone were negative, his high coffee consumption is a likely cause due to its diuretic effect leading to dehydration. I strongly advised him to increase his water intake to counteract this. Regarding his request for smoking cessation aid, I agreed to prescribe Chantix and advised him to stick with one method at a time. We will have him get repeat labs a week before his follow-up appointment in April. Patient Instructions - Follow up with the hand specialist for your carpal tunnel syndrome. - I will prescribe Chantix to help you quit smoking. Take this as directed. Do not use other nicotine products like patches at the same time. - Increase your daily water intake. Your fatigue and dizziness may be caused by dehydration from drinking too much coffee. For every cup of coffee you drink, you should also drink water to stay hydrated. Flavored water is acceptable. - You will need to have your blood drawn again in three months to recheck your cholesterol. Please have this done one week before your next appointment in April. Orders: Orders TSH reflex Free T4 3 Months E66.3 - Overweight, E78.5 - Hyperlipidemia, unspecified, F17.200 - Nicotine dependence, unspecified, uncomplicated, F33.9 - Major depressive disorder, recurrent, unspecified, G89.29 - Other chronic pain, I25.10 - Atherosclerotic heart disease of [place] coronary artery without angina pectoris, M25.512 - Pain in left shoulder, M54.12 - Radiculopathy, cervical region, M54.5 - Low back pain, M54.50 - Low back pain, unspecified, Z79.620 - [facility] (current) use of immunosuppressive biologic Vitamin D 25-OH Total 3 Months E66.3 - Overweight, E78.5 - Hyperlipidemia, unspecified, F17.200 - Nicotine dependence, unspecified, uncomplicated, F33.9 - Major depressive disorder, recurrent, unspecified, G89.29 - Other chronic pain, I25.10 - Atherosclerotic heart disease of [place] coronary artery without angina pectoris, M25.512 - Pain in left shoulder, M54.12 - Radiculopathy, cervical region, M54.5 - Low back pain, M54.50 - Low back pain, unspecified, 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 Lipid Panel Today E66.3 - Overweight, E78.5 - Hyperlipidemia, unspecified, F17.200 - Nicotine dependence, unspecified, uncomplicated, F33.9 - Major depressive disorder, recurrent, unspecified, G89.29 - Other chronic pain, I25.10 - Atherosclerotic heart disease of [place] coronary artery without angina pectoris, M25.512 - Pain in left shoulder, M54.12 - Radiculopathy, cervical region, M54.5 - Low back pain, M54.50 - Low back pain, unspecified, 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 UA CC w/rflx Micro + Cult 3 Months E66.3 - Overweight, E78.5 - Hyperlipidemia, unspecified, F17.200 - Nicotine dependence, unspecified, uncomplicated, F33.9 - Major depressive disorder, recurrent, unspecified, G89.29 - Other chronic pain, I25.10 - Atherosclerotic heart disease of [place] coronary artery without angina pectoris, M25.512 - Pain in left shoulder, M54.12 - Radiculopathy, cervical region, M54.5 - Low back pain, M54.50 - Low back pain, unspecified, 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
== END 2025-02-05 12:58 | disposition home or self-care (01) ==
LOC: HO.HMCH 11:23
PROVIDERS: PCP Internal Medicine
DX: G56.03 Carpal tunnel syndrome, bilateral upper limbs (principal); G56.23 Lesion of ulnar nerve, bilateral upper limbs; E78.5 Hyperlipidemia, unspecified; E66.3 Overweight; E55.9 Vitamin D deficiency, unspecified; R53.83 Other fatigue; M54.12 Radiculopathy, cervical region; F17.200 Nicotine dependence, unspecified, uncomplicated

== ENCOUNTER → 2025-02-05 11:22 | Outpatient (BNVA) | payer OTHER, SELFPAY | PROVIDERS: PCP Internal Medicine | DX: G56.03 Carpal tunnel syndrome, bilateral upper limbs (principal); G56.23 Lesion of ulnar nerve, bilateral upper limbs; E78.5 Hyperlipidemia, unspecified; E66.3 Overweight; E55.9 Vitamin D deficiency, unspecified; R53.83 Other fatigue; M54.12 Radiculopathy, cervical region; F17.210 Nicotine dependence, cigarettes, uncomplicated | CPT/HCPCS: 99212 ==